=== PATIENT | female | born 1970 | race Two or more races ===

== ENCOUNTER 2020-08-04 15:02 | Inpatient (IN) | payer MEDICAID ==
[~2020-08-04] VITALS: Ht 152.4 cm; Wt 108.9 kg
[2020-08-04] VITALS (9 sets, daily range): BP systolic 100–134; BP diastolic 50–74
[~2020-08-04 15:02] MED LIST: Azithromycin 500 MG in NS 275 ML IVPB ONE; Piperacillin/Tazobactam 3.375 GM in NS 110 ML IVPB ONE; Sodium Bicarbonate 50ml Carp IV ONE; cefTRIAXone 1 GM in NS 55 ML IV ONE; dexAMETHasone 10mg/ml Inj IV ONE
[2020-08-04] MEDS ORDERED: Amiodarone 900 MG in D5W 500ml 482 ML IV ONE (15:15)
--- NOTE | 2020-08-04 15:15 | Emergency Room Report ---
History of Present Illness General Chief Complaint: Syncope Source: EMS Present Illness HPI Patient is a 50-year-old female past medical history of end-stage renal disease on dialysis due for dialysis today who presents to the ER via EMS for syncope. Family called EMS due to patient having a syncope at home. While with EMS patient had a generalized tonic-clonic seizure. Patient was given 5 mg of Versed. While patient was being registered and waiting in the ambulance patient had loss of pulses. CPR was initiated by EMS. Unable to obtain further history at this time. Allergies: Coded Allergies: No Known Allergies (Unverified , 08/04/20) COVID-19 Screening Contact w/high risk pt: No Experienced COVID-19 symptoms?: No COVID-19 Testing performed WAVE SOLDER OFFBEARER: No Patient History Reviewed Nursing Documentation: PMH: Agreed; PSxH: Agreed Review of Systems All Other Systems: limited - Cardiac arrest Physical Exam Vital Signs Date Time Temp Pulse Resp B/P (MAP) Pulse Ox O2 Delivery O2 Flow Rate FiO2 08/04/20 14:42 142 22 86 Ambu-Bag 15.0 Sp02 EP Interpretation: abnormal General Appearance: other - Unresponsive Head: normocephalic, atraumatic Eyes: right eye other - Corneal opacification ENT: moist mucus membranes Neck: full range of motion, no meningismus Respiratory: rales, other - Right anterior chest wall dialysis catheter in place Cardiovascular #1: other - No heartbeat Gastrointestinal: non tender, soft Rectal: deferred Neurologic: other - GCS 3 Psychiatric: other - Nonverbal Skin: no rash Lymphatic: no adenopathy Procedures Critical Care Time Critical Care Time Total critical care time: Approximately 125 minutes. Due to a high probability of clinically significant, life threatening deterioration, the patient required my highest level of preparedness to intervene emergently and I personally spent this critical care time directly and personally managing the patient. This critical care time included obtaining a history; examining the patient; pulse oximetry; ordering and review of studies; arranging urgent treatment with development of a management plan; evaluation of patient's response to treatment; frequent reassessment; and, discussions with other providers.This critical care time was performed to assess and manage the high probability of imminent, life- threatening deterioration that could result in multi-organ failure. It was exclusive of separately billable procedures and treating other patients and teaching time. Please see MDM section and the rest of the note for further information on patie nt assessment and treatment. Central Line Central Line : Consent: Emergent Central Line Lumen: triple Maximal Sterile Barrier Tech: yes cap, yes mask, yes sterile gown, yes sterile gloves, yes large sterile sheet, yes hand hygiene, yes chlorhexidine prep No Max Barrier Tech Because: emergency insertion Central Line Postion: femoral (L) US Guided Line?: No Complications: none Central Line Post Position: sutured, good blood return Attempts: One Patient Tolerated: Well Complications: None Intubation Intubation : Consent: Emergent Tube Size (cm): 7.5 Breath Sounds after Intubation: equal Intubation Complications: no complications Post Intubation Xray: Yes Attempts: One Patient Tolerated: Well Complications: None Medical Decision Making Diagnostic Impression: Primary Impression: Cardiac arrest Additional Impressions: DKA (diabetic ketoacidoses) Metabolic acidosis COVID-19 Pneumonia Septic shock ER Course 1 patient came from ambulance CPR was in progress. Patient was already given 1 round of epi in the ambulance. Please refer to nursing code sheet for subsequent medications and timing. Patient was given a total of 5 epis throughout the code sodium bicarbonate, calcium gluconate and dextrose upon arrival. Patient had return of pulses. Patient was in sinus tachycardia. 150 mg of IV amiodarone and amiodarone drip has been ordered. Patient again had loss of pulses while in the emergency room. CPR was initiated. 2 A of epi were given. Patient was also given sodium bicarb and calcium chloride. Patient had return of pulses. Patient was in sinus tachycardia. EKG had some elevations in the inferior lateral leads. EKG has been sent to [facility] where they are receiving STEMI center. They were called at 3:[address] Tubbs from [facility] called back, no STEMI. ET tube pulled back 2 cm after initial chest x-ray Patient severely acidotic. Patient given multiple amps of sodium bicarbonate and started on a bicarb drip. Initial pH six-point 8 repeat pH 6.9. With PCO2 of 58. I will increase the respiratory rate on the ventilator to 24 from 16. Patient also hyperglycemic with anion gap. Patient started on insulin drip and given insulin bolus. Patient's lactate is 18. Patient already started on broad-spectrum antibiotics. Unable to fluid resuscitate due to COVID-19 infection and risk of ARDS from pulmonary edema in addition to her history of end-stage renal disease. Patient is fluid overloaded. Unclear if patient has any urine output. I have given her 40 mg of IV Lasix. Patient will require dialysis but unable to perform dialysis in the emergency room will wait until patient goes to the ICU. Patient's troponin is elevated. As well as her D- dimer. Patient started on heparin. Patient remains in critical condition. I spoke with the patient's daughter who does not live with her several times regarding her mother's condition. She knows that her mother is critically ill and on life support. Her father and other sister live with her mother and she will inform them of the status of the patient.. Laboratory Tests Test 08/04/20 15:31 White Blood Count 21.4 K/UL (4.8-10.8) H Red Blood Count 3.34 M/UL (4.20-5.40) L Hemoglobin 11.7 G/DL (12.0-16.0) L Hematocrit 35.8 % (37.0-47.0) L Mean Corpuscular Volume 107 FL (80-99) H Mean Corpuscular Hemoglobin 35.0 PG (27.0-31.0) H Mean Corpuscular Hemoglobin Concent 32.6 G/DL (32.0-36.0) Red Cell Distribution Width 13.5 % (11.6-14.8) Platelet Count 127 K/UL (150-450) L Mean Platelet Volume 13.5 FL (6.5-10.1) H Neutrophils (%) (Auto) % (45.0-75.0) Lymphocytes (%) (Auto) % (20.0-45.0) Monocytes (%) (Auto) % (1.0-10.0) Eosinophils (%) (Auto) % (0.0-3.0) Basophils (%) (Auto) % (0.0-2.0) Neutrophils % (Manual) Pending Lymphocytes % (Manual) Pending Platelet Estimate Pending Platelet Morphology Pending Prothrombin Time Pending Prothrombin Time INR Pending Activated Partial Thromboplast Time Pending D-Dimer Pending Sodium Level 134 MMOL/L (136-145) L Potassium Level 4.8 MMOL/L (3.5-5.1) Chloride Level 92 MMOL/L (98-107) L Carbon Dioxide Level 15 MMOL/L (21-32) L Anion Gap 27 mmol/L (5-15) H Blood Urea Nitrogen 92 mg/dL (7-18) H Creatinine 14.4 MG/DL (0.55-1.30) H Estimated Glomerular Filtration Rate 2.7 mL/min (>60) Glucose Level 557 MG/DL (74-106) *H Lactic Acid Level 18.60 mmol/L (0.4-2.0) H Calcium Level 11.4 MG/DL (8.5-10.1) H Phosphorus Level 13.8 MG/DL (2.5-4.9) H Magnesium Level 2.6 MG/DL (1.8-2.4) H Ferritin 380 NG/ML (8-388) Total Bilirubin 0.6 MG/DL (0.2-1.0) Aspartate Amino Transferase (AST) 716 U/L (15-37) H Alanine Aminotransferase (ALT) 355 U/L (12-78) H Alkaline Phosphatase 298 U/L (46-116) H Lactate Dehydrogenase 2101 U/L (81-234) H Total Creatine Kinase 212 U/L (26-308) Troponin I 0.322 ng/mL (0.000-0.056) C-Reactive Protein, Quantitative 25.5 mg/dL (0.00-0.90) H Pro-B-Type Natriuretic Peptide 20194 pg/mL (0-125) H Total Protein 5.7 G/DL (6.4-8.2) L Albumin 1.8 G/DL (3.4-5.0) L Globulin 3.9 g/dL Albumin/Globulin Ratio 0.5 (1.0-2.7) L Lipase 84 U/L (73-393) Microbiology Date/Time Source Procedure Growth Status 08/04/20 15:24 Nasopharynx SARS-CoV-2 RdRp Gene Assay - Final Complete EKG Diagnostic Results Troponin ordered: Yes When was troponin ordered?: Aug 04, 2020 EKG Time: 15:21 EP Interpretation: Beatrice Michael MD Rate: tachycardiac - 161 bpm Rhythm: other - Sinus tachycardia ST Segments: other - Slight depressions in the inferior leads with elevations in the lateral leads ASA given to the pt in ED: No Rhythm Strip Diag. Results Rhythm Strip Time: 16:12 EP Interpretation: yes - Beatrice Michael MD Rate: 82 bpm Rhythm: NSR, no PVC's, no ectopy Chest X-Ray Diagnostic Results Chest X-Ray Diagnostic Results : Chest X-Ray Ordered: Yes # of Views/Limited/Complete: 1 View Indication: Other - Cardiac arrest EP Interpretation: Yes Interpretation: no effusion, no pneumothorax, other - Bilateral pulmonary infiltrates ET tube just above or at the krishna Impression: Other - Pneumonia Electronically Signed by: Beatrice Michael MD Last Vital Signs Date Time Temp Pulse Resp B/P (MAP) Pulse Ox O2 Delivery O2 Flow Rate FiO2 08/04/20 14:42 142 22 86 Ambu-Bag 15.0 Disposition: ADMITTED INPATIENT - ICU Condition: Serious Physician Consult: Dr. Goyal, 1735 PM Additional Instructions: Please note that this report is being documented using [employer] technology. This can lead to erroneous entry secondary to incorrect interpretation by the dictating instrument. Sepsis Event Note Evaluation Current Stage of Sepsis: Septic Shock Possible Source: Pulmonary Focused Exam Allergies: Coded Allergies: No Known Allergies (Unverified , 08/04/20) Date Exam Occurred: Aug 04, 2020 Time Exam Occurred: 17:41 Laboratory Studies Laboratory Tests Test 08/04/20 15:31 White Blood Count 21.4 K/UL (4.8-10.8) H Red Blood Count 3.34 M/UL (4.20-5.40) L Hemoglobin 11.7 G/DL (12.0-16.0) L Hematocrit 35.8 % (37.0-47.0) L Mean Corpuscular Volume 107 FL (80-99) H Mean Corpuscular Hemoglobin 35.0 PG (27.0-31.0) H Mean Corpuscular Hemoglobin Concent 32.6 G/DL (32.0-36.0) Red Cell Distribution Width 13.5 % (11.6-14.8) Platelet Count 127 K/UL (150-450) L Mean Platelet Volume 13.5 FL (6.5-10.1) H Neutrophils (%) (Auto) % (45.0-75.0) Lymphocytes (%) (Auto) % (20.0-45.0) Monocytes (%) (Auto) % (1.0-10.0) Eosinophils (%) (Auto) % (0.0-3.0) Basophils (%) (Auto) % (0.0-2.0) Neutrophils % (Manual) Pending Lymphocytes % (Manual) Pending Platelet Estimate Pending Platelet Morphology Pending Prothrombin Time Pending Prothromb Time International Ratio Pending Activated Partial Thromboplast Time Pending D-Dimer Pending Sodium Level 134 MMOL/L (136-145) L Potassium Level 4.8 MMOL/L (3.5-5.1) Chloride Level 92 MMOL/L (98-107) L Carbon Dioxide Level 15 MMOL/L (21-32) L Anion Gap 27 mmol/L (5-15) H Blood Urea Nitrogen 92 mg/dL (7-18) H Creatinine 14.4 MG/DL (0.55-1.30) H Estimat Glomerular Filtration Rate 2.7 mL/min (>60) Glucose Level 557 MG/DL (74-106) *H Lactic Acid Level 18.60 mmol/L (0.4-2.0) H Calcium Level 11.4 MG/DL (8.5-10.1) H Phosphorus Level 13.8 MG/DL (2.5-4.9) H Magnesium Level 2.6 MG/DL (1.8-2.4) H Ferritin 380 NG/ML (8-388) Total Bilirubin 0.6 MG/DL (0.2-1.0) Aspartate Amino Transf (AST/SGOT) 716 U/L (15-37) H Alanine Aminotransferase (ALT/SGPT) 355 U/L (12-78) H Alkaline Phosphatase 298 U/L (46-116) H Lactate Dehydrogenase 2101 U/L (81-234) H Total Creatine Kinase 212 U/L (26-308) Troponin I 0.322 ng/mL (0.000-0.056) C-Reactive Protein, Quantitative 25.5 mg/dL (0.00-0.90) H Pro-B-Type Natriuretic Peptide 52886 pg/mL (0-125) H Total Protein 5.7 G/DL (6.4-8.2) L Albumin 1.8 G/DL (3.4-5.0) L Globulin 3.9 g/dL Albumin/Globulin Ratio 0.5 (1.0-2.7) L Lipase 84 U/L (73-393) Vital Signs Last 24 Hour Vital Signs Date Time Temp Pulse Resp B/P (MAP) Pulse Ox O2 Delivery O2 Flow Rate FiO2 08/04/20 16:15 65/42 08/04/20 16:03 65/42 08/04/20 15:30 98.5 65 22 119/72 93 Mechanical Ventilator 08/04/20 14:42 142 22 119/72 (88) 86 Ambu-Bag 15.0 Respiratory Exam: Rhonchi Cardiovascular Exam: Tachycardia Capillary Refill: Less Than 2 Seconds Peripheral Pulse: Strong Beatrice Michael M.D. Aug 04, 2020 15:15
[2020-08-04] MEDS ORDERED: Sodium Bicarbonate 50ml Carp ONE (15:20)
[2020-08-04] MEDS ORDERED: dexAMETHasone 10mg/ml Inj IV ONE (15:50)
[2020-08-04] MEDS ORDERED: Levophed 4mg/4mL Inj IV ONE ×2 (15:51→20:23)
[2020-08-04] MEDS ORDERED: Sodium Bicarbonate 50ml Carp IV ONE (16:00)
[2020-08-04 16:08] LABS: HEMATOCRIT 35.8 % (37.0-47.0); HEMOGLOBIN 11.7 G/DL (12.0-16.0); MEAN CORPUSCULAR VOLUME 107 FL (80-99); PLATELET COUNT 127 K/UL (150-450); RED BLOOD COUNT 3.34 M/UL (4.20-5.40); RED CELL DISTRIBUTION WIDTH 13.5 % (11.6-14.8); WHITE BLOOD COUNT 21.4 K/UL (4.8-10.8)
[2020-08-04] MEDS: EPINEPHrine 1mg/1ml Amp 1 MG in D5W 249 ML IV SCH ×4 (16:14→21:53)
[2020-08-04] MEDS: DOPamine 400mg/250ml 250 ML IV SCH ×2 (16:15→20:41)
[2020-08-04] MEDS ORDERED: Azithromycin 500mg Inj ONE (16:32)
[2020-08-04 16:39] LABS: ALANINE AMINOTRANSFERASE 355 U/L (12-78); ALBUMIN 1.8 G/DL (3.4-5.0); ALBUMIN/GLOBULIN RATIO 0.5 (1.0-2.7); ALKALINE PHOSPHATASE 298 U/L (46-116); ANION GAP 27 mmol/L (5-15); ASPARTATE AMINO TRANSFERASE 716 U/L (15-37); BILIRUBIN,TOTAL 0.6 MG/DL (0.2-1.0); BLOOD UREA NITROGEN 92 mg/dL (7-18); CALCIUM 11.4 MG/DL (8.5-10.1); CARBON DIOXIDE 15 MMOL/L (21-32); CHLORIDE 92 MMOL/L (98-107); CREATINE KINASE 212 U/L (26-308); CREATININE 14.4 MG/DL (0.55-1.30); FERRITIN 380 NG/ML (8-388); LACTATE DEHYDROGENASE 2101 U/L (81-234); PHOSPHORUS 13.8 MG/DL (2.5-4.9); POTASSIUM 4.8 MMOL/L (3.5-5.1); SODIUM 134 MMOL/L (136-145)
[2020-08-04] MEDS ORDERED: Insulin Human Regular 100units/ml 3ml IV ONE (16:45)
[2020-08-04] MEDS ORDERED: Heparin 25,000u/D5W 500ml 500 ML IV SCH (16:45)
[2020-08-04] MEDS ORDERED: Heparin 5000 units/ml inj IV ONE (16:45)
[2020-08-04] MEDS ORDERED: COREG6.25 MG ORAL (17:00)
[2020-08-04] MEDS ORDERED: COLACE100 MG ORAL (17:00)
[2020-08-04] MEDS ORDERED: ASPIRIN81 MG ORAL (17:00)
[2020-08-04] MEDS ORDERED: LIPITOR40 MG ORAL (17:00)
[2020-08-04] MEDS ORDERED: SYNTHROID75 MCG ORAL (17:00)
[2020-08-04] MEDS ORDERED: SEVELAMER HCL800 MG PO (17:00)
[2020-08-04] MEDS ORDERED: SENNA8.6 M2 PO (17:00)
--- NOTE | 2020-08-04 17:04 | Diagnostic Imaging Report ---
Indication: Hours of breath, status post endotracheal tube placement Technique: One view of the chest Comparison: none Findings: Endotracheal tube tip projects approximately 1 cm above the krishna. There are bilateral diffuse and extensive alveolar infiltrates. The pleural spaces are clear. The heart size is normal. There are overlying cardiac earlier paddles. There is a right jugular tunneled dialysis catheter. Venous stents are seen in the left axilla Impression: Satisfactory endotracheal intubation Extensive bilateral infiltrates, may reflect pulmonary edema or pneumonia, among other possibilities Other findings as noted
[2020-08-04] MEDS: Insulin Reg 100 units Premix 100 ML IVPB SCH (17:23)
[2020-08-04 17:43] LABS: INR 1.3 (0.9-1.1); PARTIAL THROMBOPLASTIN TIME 94 SEC (23-33)
[2020-08-04] MEDS ORDERED: EPINEPHrine 1mg/1ml Amp 1 MG in D5W 249 ML IV SCH (19:00)
[2020-08-04] MEDS ORDERED: Vasopressin 100 UNITS in NS 95 ML IV SCH (19:00)
[2020-08-04] MEDS ORDERED: EPINEPHRINE IV SCH (22:00)
[2020-08-04] MEDS ORDERED: D5W IV SCH (22:00)
[2020-08-05] VITALS (42 sets, daily range): BP systolic 82–152; BP diastolic 39–113
[2020-08-05] MEDS ORDERED: Levophed 4mg/4mL Inj IV ONE ×2 (00:48→06:07)
[2020-08-05] MEDS: Insulin Reg 100 units Premix 100 ML IVPB SCH ×2 (01:00→05:49)
[2020-08-05 04:59] LABS: CALCIUM 8.2 MG/DL (8.5-10.1); CREATININE 13.4 MG/DL (0.55-1.30); POTASSIUM 3.8 MMOL/L (3.5-5.1)
[2020-08-05 06:34] LABS: HEMATOCRIT 32.9 % (37.0-47.0); HEMOGLOBIN 11.3 G/DL (12.0-16.0); MEAN CORPUSCULAR VOLUME 101 FL (80-99); PLATELET COUNT 177 K/UL (150-450); RED BLOOD COUNT 3.26 M/UL (4.20-5.40); RED CELL DISTRIBUTION WIDTH 13.8 % (11.6-14.8)
[2020-08-05 06:36] LABS: WHITE BLOOD COUNT 24.6 K/UL (4.8-10.8)
[2020-08-05] MEDS ORDERED: Heparin 25,000u/D5W 500ml 500 ML IV SCH ×3 (07:00→16:00)
[2020-08-05] MEDS ORDERED: Insulin Reg 100 units Premix 100 ML IV SCH (10:30)
[2020-08-05] MEDS ORDERED: Acetaminophen 650 MG SUPP RECTAL PRN (10:30)
[2020-08-05] MEDS ORDERED: Norepinephrine Bitartrate 8 MG in D5W 500ml 550 ML IV SCH (11:00)
[2020-08-05] MEDS ORDERED: Insulin Rate Change 1 Each MISC PRN (11:00)
[2020-08-05] MEDS ORDERED: Insulin Human Regular 100units/ml 3ml IV PRN ×2 (11:00)
[2020-08-05] MEDS: Vasopressin 100 UNITS in NS 95 ML IV SCH (12:05)
[2020-08-05] MEDS: Piperacillin/Tazobactam 2.25 GM in NS 55 ML IV SCH ×2 (12:05→18:38)
[2020-08-05] MEDS ORDERED: Piperacillin/Tazobactam 3.375 GM in NS 110 ML IVPB SCH (14:00)
[2020-08-05 14:10] LABS: HEMATOCRIT 32.8 % (37.0-47.0); HEMOGLOBIN 11.9 G/DL (12.0-16.0); MEAN CORPUSCULAR VOLUME 97 FL (80-99); PLATELET COUNT 133 K/UL (150-450); RED BLOOD COUNT 3.38 M/UL (4.20-5.40); RED CELL DISTRIBUTION WIDTH 14.1 % (11.6-14.8)
[2020-08-05 14:12] LABS: WHITE BLOOD COUNT 24.6 K/UL (4.8-10.8)
[2020-08-05 14:15] LABS: CREATININE 12.8 MG/DL (0.55-1.30); POTASSIUM 4.1 MMOL/L (3.5-5.1)
--- NOTE | 2020-08-05 15:34 | Consultation ---
DATE OF CONSULTATION: 08/05/2020 PULMONARY CONSULTATION CONSULTING PHYSICIAN: Kevin Antunez MD HISTORY OF PRESENT ILLNESS: This is a 50-year-old female, on chronic hemodialysis due to ESRD. She was brought in by paramedics to the emergency room yesterday after a syncopal episode. Apparently, family called EMS due to patient having had a syncopal episode. Patient was also found to have seizures while in pharmacy district manager custody as well in the ER. Patient had a cardiopulmonary arrest before being taken off the gurney while waiting for the ER bed. Patient was intubated. Currently, patient is on multiple pressors and no other history obtainable. CURRENT MEDICATIONS: Include insulin drip, heparin drip, norepinephrine infusion, Zosyn, vasopressin. Patient has received Decadron as well as broad-spectrum antibiotics. No other history obtainable at this point in time. PHYSICAL EXAMINATION: VITAL SIGNS: Blood pressure 110/50, heart rate 84, respirations 24. She is on mechanical ventilation AC mode, FiO2 100%. CHEST: Clear breath sounds bilaterally. ABDOMEN: Soft. EXTREMITIES: There is no edema. LABORATORY DATA: Lab testing showed WBC 24,000, hemoglobin 11.9. ABG 7.29, pCO2 37, pO2 65. This is on 100% FiO2. Chemistries obtained yesterday show marked hyperglycemia of 647, creatinine of 13, sodium 131, BUN 95. Coags show PTT more than 200 on heparin drip. Troponin 2.24. IMPRESSION: 1. Non-STEMI. 2. Shock, suspect septic versus cardiogenic. 3. ESRD, on dialysis. 4. Marked hyperglycemia. 5. Hyponatremia. DISCUSSION: Patient is critically ill on multiple pressors. She has bilateral pulmonary infiltrates, suspicious for either fluid or a pneumonic process. She is also tested positive for COVID-19. I suspect she has ARDS secondary to COVID-19 pneumonia in conjunction with pulmonary edema. Patient is critically ill on multiple pressors. She would benefit from multiple antibiotics as well as Decadron. Continue AC mode. Prognosis is grave. We will follow carefully. Kevin Antunez M.D. DR: TYRONE/YOON JOB#: [id number] CC:
--- NOTE | 2020-08-05 16:01 | Consultation ---
DATE OF CONSULTATION: 08/05/2020 INFECTIOUS DISEASE CONSULTATION CONSULTING PHYSICIAN: Harry Eugene MD. PRIMARY ATTENDING PHYSICIAN: Rehan Goyal MD. This consult is for coverage of Dr. Dale. HISTORY OF PRESENT ILLNESS: This 50-year-old female admitted yesterday from home. Apparently, the patient had a syncopal episode. After arrival of EMS, the patient had a tonic-clonic seizure. She was also coded on way to the hospital, was intubated. PAST MEDICAL HISTORY: Diabetes mellitus, end-stage renal disease on hemodialysis, obesity. ALLERGIES: No known drug allergies. MEDICATIONS: Zosyn, vasopressin, norepinephrine, insulin, heparin. SOCIAL HISTORY: Not obtainable. REVIEW OF SYSTEMS: Unobtainable. The patient is single. PHYSICAL EXAMINATION: VITAL SIGNS: Temperature 97.4, pulse 87, blood pressure 113/56. HEAD AND NECK: Orally intubated. HEART: Normal rate. LUNGS: On ventilator. ABDOMEN: Soft. EXTREMITIES: No edema. NEUROLOGIC: Unresponsive. LABORATORY AND DIAGNOSTIC DATA: Sodium 131, potassium 3.8, carbon dioxide 20, chloride 90. Glucose is 647. Calcium is 8.2. Troponin 2.24. WBC 24.6, hemoglobin 11.9, hematocrit 36.5, and platelets 133,000. ABG showed pH of 7.291, pCO2 of 37.2, pO2 of 65.8, O2 saturation of 90.1. COVID test was positive. Influenza A and B are negative. Chest x-ray showed bilateral infiltrates, pulmonary edema . IMPRESSION: Sepsis with septic shock, cardiac arrest, COVID-19 pneumonia, may also have aspiration pneumonia. She has diabetes mellitus with hyperglycemia, hypoxemic respiratory failure, hyponatremia, morbid obesity, elevation of troponin likely non-ST elevated myocardial infarction. RECOMMENDATION: Continue Zosyn. Continue supportive care. Start on dexamethasone. At the end of my exam, I thank Dr. Goyal for involving me in the care of this patient. Harry Eugene M.D. DR: PATRICIA JOB#: [id number] CC: LAURA
[2020-08-05] MEDS: NOREPINEPHRINE BITARTRATE IV SCH (16:18)
[2020-08-05] MEDS: SODIUM CHLORIDE IV SCH (16:18)
[2020-08-05] MEDS ORDERED: NovoLOG Insulin Flexpen SUBQ SCH (16:50)
[2020-08-05 17:43] LABS: CALCIUM 7.9 MG/DL (8.5-10.1); CREATININE 12.9 MG/DL (0.55-1.30); POTASSIUM 4.7 MMOL/L (3.5-5.1)
--- NOTE | 2020-08-05 18:21 | Cardiology Progress Note ---
Assessment/Plan Assessment/Plan The patient is seen and examined, full consult note is dictated. Objective Last 24 Hour Vital Signs Date Time Temp Pulse Resp B/P (MAP) Pulse Ox O2 Delivery O2 Flow Rate FiO2 08/05/20 17:00 152/48 08/05/20 16:18 105/48 08/05/20 16:00 87 08/05/20 16:00 115/49 08/05/20 15:30 114/48 08/05/20 15:28 89 24 100 08/05/20 15:00 82/39 08/05/20 14:45 87/40 08/05/20 14:30 96/41 08/05/20 14:00 117/48 08/05/20 13:00 112/51 08/05/20 12:00 97.4 87 24 113/56 (75) 95 08/05/20 12:00 113/56 08/05/20 12:00 86 08/05/20 11:59 114/56 08/05/20 11:30 86 24 110/56 (74) 96 08/05/20 11:29 88 24 100 08/05/20 11:00 85 24 110/52 (71) 96 08/05/20 10:30 84 24 109/53 (71) 96 08/05/20 10:00 83 24 110/47 (68) 96 08/05/20 09:36 78 24 100 08/05/20 09:33 78 24 88 Mechanical Ventilator 100 08/05/20 09:30 83 24 101/49 (66) 95 08/05/20 09:00 Mechanical Ventilator 08/05/20 09:00 83 24 98/45 (62) 93 08/05/20 08:30 96.5 83 23 95/40 (58) 86 08/05/20 08:30 100 08/05/20 08:15 98.3 82 20 118/54 93 Mechanical Ventilator 15.0 80 08/05/20 07:30 98.3 82 20 118/54 93 Mechanical Ventilator 08/05/20 07:00 98.5 88 24 107/58 94 Mechanical Ventilator 80 08/05/20 07:00 118/57 08/05/20 06:30 98.5 89 24 118/57 94 Mechanical Ventilator 15.0 80 08/05/20 06:10 110/57 08/05/20 06:00 98.5 89 24 110/57 94 Mechanical Ventilator 80 08/05/20 06:00 110/57 08/05/20 05:30 98.5 91 24 112/59 94 Mechanical Ventilator 80 08/05/20 05:00 103/63 08/05/20 05:00 98.5 91 24 103/63 94 Mechanical Ventilator 15.0 80 08/05/20 04:30 98.5 89 24 106/59 94 Mechanical Ventilator 80 08/05/20 04:00 104/57 08/05/20 04:00 98.5 95 24 104/57 94 Mechanical Ventilator 80 08/05/20 03:30 98.5 97 24 98/52 96 Mechanical Ventilator 80 08/05/20 03:00 98.5 98 24 123/67 96 Mechanical Ventilator 80 08/05/20 03:00 123/67 08/05/20 02:45 80 08/05/20 02:44 105 24 80 08/05/20 02:30 98.5 104 24 123/60 96 Mechanical Ventilator 15.0 60 08/05/20 02:00 98.5 108 24 115/65 96 Mechanical Ventilator 60 08/05/20 02:00 115/65 08/05/20 01:30 98.5 105 24 117/66 96 Mechanical Ventilator 60 08/05/20 01:01 111/59 08/05/20 01:00 111/59 08/05/20 01:00 98.5 106 24 121/63 96 Mechanical Ventilator 60 08/05/20 00:30 98.5 108 23 111/59 99 Mechanical Ventilator 60 08/05/20 00:00 98.5 113 23 94/49 99 Mechanical Ventilator 60 08/05/20 00:00 94/49 08/05/20 00:00 94/49 08/04/20 23:30 98.5 111 23 100/52 99 Mechanical Ventilator 60 08/04/20 23:15 113 23 60 08/04/20 23:15 60 08/04/20 23:00 134/61 08/04/20 23:00 134/61 08/04/20 23:00 98.5 110 21 134/61 99 Mechanical Ventilator 100 08/04/20 22:30 98.5 110 22 109/61 99 Mechanical Ventilator 60 08/04/20 22:00 127/63 08/04/20 22:00 127/63 12/23/20 22:00 98.5 110 22 127/63 99 Mechanical Ventilator 100 08/04/20 21:30 98.5 110 22 121/58 100 Mechanical Ventilator 100 08/04/20 21:00 98.5 110 22 102/62 100 Mechanical Ventilator 100 08/04/20 21:00 102/62 08/04/20 21:00 102/62 08/04/20 20:42 82/29 08/04/20 20:41 82/29 08/04/20 20:30 98.5 110 18 116/50 99 Mechanical Ventilator 100 08/04/20 20:00 98.5 110 13 101/74 99 Mechanical Ventilator 100 08/04/20 20:00 101/74 08/04/20 20:00 101/74 08/04/20 19:30 100 08/04/20 19:00 69 18 100 Intake and Output 08/04/20 08/05/20 19:00 07:00 Intake Total 2293.423 ml Balance 2293.423 ml Intake IV Total 2293.423 ml Laboratory Tests Test 08/04/20 18:45 08/04/20 23:02 08/05/20 00:33 08/05/20 01:47 Arterial Blood pH 7.007 (7.350-7.450) Arterial Blood Partial Pressure CO2 36.8 mmHg (35.0-45.0) Arterial Blood Partial Pressure O2 240.0 mmHg (75.0-100.0) H Arterial Blood HCO3 9.0 mmol/L (22.0-26.0) *L Arterial Blood Oxygen Saturation 98.7 % (95-100) Arterial Blood Base Excess -21.3 (-2-2) *L Viraj Test Positive POC Whole Blood Glucose Pending Pending Pending Test 08/05/20 03:43 08/05/20 04:00 08/05/20 06:01 08/05/20 06:53 POC Whole Blood Glucose Pending Pending 512 MG/DL (74-106) *H White Blood Count 24.6 K/UL (4.8-10.8) *H Red Blood Count 3.26 M/UL (4.20-5.40) L Hemoglobin 11.3 G/DL (12.0-16.0) L Hematocrit 32.9 % (37.0-47.0) L Mean Corpuscular Volume 101 FL (80-99) H Mean Corpuscular Hemoglobin 34.6 PG (27.0-31.0) H Mean Corpuscular Hemoglobin Concent 34.3 G/DL (32.0-36.0) Red Cell Distribution Width 13.8 % (11.6-14.8) Platelet Count 177 K/UL (150-450) Mean Platelet Volume 14.1 FL (6.5-10.1) H Neutrophils (%) (Auto) % (45.0-75.0) Lymphocytes (%) (Auto) % (20.0-45.0) Monocytes (%) (Auto) % (1.0-10.0) Eosinophils (%) (Auto) % (0.0-3.0) Basophils (%) (Auto) % (0.0-2.0) Differential Total Cells Counted 100 Neutrophils % (Manual) 85 % (45-75) H Lymphocytes % (Manual) 6 % (20-45) L Monocytes % (Manual) 2 % (1-10) Eosinophils % (Manual) 0 % (0-3) Basophils % (Manual) 0 % (0-2) Metamyelocytes % 1 % (0-0) H Myelocytes % 1 % (0-0) H Band Neutrophils 5 % (0-8) Platelet Estimate Adequate Platelet Morphology Normal Hypochromasia 1+ Anisocytosis 1+ Crenated Cell 1+ Activated Partial Thromboplast Time > 200 SEC (23-33) *H Sodium Level 131 MMOL/L (136-145) L Potassium Level 3.8 MMOL/L (3.5-5.1) Chloride Level 90 MMOL/L (98-107) L Carbon Dioxide Level 20 MMOL/L (21-32) L Anion Gap 21 mmol/L (5-15) H Blood Urea Nitrogen 95 mg/dL (7-18) H Creatinine 13.4 MG/DL (0.55-1.30) H Estimat Glomerular Filtration Rate 2.9 mL/min (>60) Glucose Level 647 MG/DL (74-106) *H Calcium Level 8.2 MG/DL (8.5-10.1) #L Troponin I 2.241 ng/mL (0.000-0.056) Test 08/05/20 08:00 08/05/20 10:11 08/05/20 10:17 08/05/20 12:14 POC Whole Blood Glucose 404 MG/DL (74-106) H 260 MG/DL (74-106) H 229 MG/DL (74-106) H Arterial Blood pH 7.291 (7.350-7.450) Arterial Blood Partial Pressure CO2 37.2 mmHg (35.0-45.0) Arterial Blood Partial Pressure O2 65.8 mmHg (75.0-100.0) L Arterial Blood HCO3 17.5 mmol/L (22.0-26.0) *L Arterial Blood Oxygen Saturation 90.1 % (95-100) L Arterial Blood Base Excess -8.3 (-2-2) L Viraj Test Positive Test 08/05/20 13:30 08/05/20 15:37 08/05/20 16:30 White Blood Count 24.6 K/UL (4.8-10.8) *H Red Blood Count 3.38 M/UL (4.20-5.40) L Hemoglobin 11.9 G/DL (12.0-16.0) L Hematocrit 32.8 % (37.0-47.0) L Mean Corpuscular Volume 97 FL (80-99) Mean Corpuscular Hemoglobin 35.1 PG (27.0-31.0) H Mean Corpuscular Hemoglobin Concent 36.3 G/DL (32.0-36.0) H Red Cell Distribution Width 14.1 % (11.6-14.8) Platelet Count 133 K/UL (150-450) L Mean Platelet Volume 11.8 FL (6.5-10.1) H Neutrophils (%) (Auto) % (45.0-75.0) Lymphocytes (%) (Auto) % (20.0-45.0) Monocytes (%) (Auto) % (1.0-10.0) Eosinophils (%) (Auto) % (0.0-3.0) Basophils (%) (Auto) % (0.0-2.0) Differential Total Cells Counted 100 Neutrophils % (Manual) 77 % (45-75) H Lymphocytes % (Manual) 6 % (20-45) L Monocytes % (Manual) 0 % (1-10) L Eosinophils % (Manual) 0 % (0-3) Basophils % (Manual) 0 % (0-2) Band Neutrophils 17 % (0-8) H Platelet Estimate Decreased L Platelet Morphology Normal Hypochromasia 1+ Anisocytosis 1+ Activated Partial Thromboplast Time > 150 SEC (23-33) *H Sodium Level 136 MMOL/L (136-145) 135 MMOL/L (136-145) L Potassium Level 4.1 MMOL/L (3.5-5.1) 4.7 MMOL/L (3.5-5.1) Chloride Level 94 MMOL/L (98-107) L 95 MMOL/L (98-107) L Carbon Dioxide Level 21 MMOL/L (21-32) 22 MMOL/L (21-32) Anion Gap 21 mmol/L (5-15) H 18 mmol/L (5-15) H Blood Urea Nitrogen 95 mg/dL (7-18) H 98 mg/dL (7-18) H Creatinine 12.8 MG/DL (0.55-1.30) H 12.9 MG/DL (0.55-1.30) H Estimat Glomerular Filtration Rate 3.0 mL/min (>60) 3.0 mL/min (>60) Glucose Level 230 MG/DL (74-106) #H 156 MG/DL (74-106) H Hemoglobin A1c 8.9 % (4.3-6.0) H Calcium Level 8.0 MG/DL (8.5-10.1) L 7.9 MG/DL (8.5-10.1) L POC Whole Blood Glucose 135 MG/DL (74-106) H Microbiology Date/Time Source Procedure Growth Status 08/04/20 18:46 Nasal Nares - Final Complete 08/04/20 18:46 Nasal Nares - Final Complete 08/04/20 15:31 Blood Blood Culture - Preliminary Resulted 08/04/20 15:24 Nasopharynx SARS-CoV-2 RdRp Gene Assay - Final Complete Torres Gates MD Aug 05, 2020 18:21
[2020-08-05] MEDS ORDERED: Dyna-Hex 2% Top Sol 2oz TOPIC SCH (20:30)
[2020-08-05] MEDS: NovoLOG Insulin Flexpen SUBQ SCH (21:04)
--- NOTE | 2020-08-05 21:15 | Consultation ---
DATE OF CONSULTATION: 08/05/2020 CARDIOLOGY CONSULTATION CONSULTING PHYSICIAN: Torres Gates MD REFERRING PHYSICIAN: Eugene Goyal MD REASON FOR CONSULTATION: Management of hemodynamic instability in a patient who had cardiac arrest. HISTORY OF PRESENT ILLNESS: Patient is a very unfortunate 50-year-old female with history of end-stage renal disease on dialysis, who presents to the emergency department for evaluation of syncope. Apparently, the family called EMS as the patient lost consciousness at home. At the time of arrival of EMS, the patient had generalized tonic-clonic seizure, was given 5 mg of Versed, and was brought to this facility. While the patient was being registered and waiting in the ambulance, the patient had gone to full cardiac arrest with loss of pulses. CPR was initiated by EMS. Apparently, the patient in the ambulance loses pulses. CPR initiated by EMS. The patient was brought to emergency department for further evaluation and management of cardiac arrest and tonic-clonic seizures. Unfortunately, full history could not be obtained from the patient, by the paramedics, and neither by the emergency medicine physicians. PAST MEDICAL HISTORY: 1. End-stage renal disease. 2. Dyslipidemia. 3. Hypertension. 4. Hypothyroidism. ALLERGIES: No known drug allergies. SURGERIES: Dialysis AV shunt. REVIEW OF SYSTEMS: Unable to obtain. MEDICATIONS: List of medications, aspirin 81 mg p.o. daily, atorvastatin 40 mg at bedtime, carvedilol 6.25 mg twice daily, Colace 100 mg p.o. daily, levothyroxine 75 mcg p.o. daily, senna 8.6 mg daily, and sevelamer 800 mg 3 times a day. PHYSICAL EXAMINATION: VITAL SIGNS: At the time of arrival to the hospital, the patient was on Ambu bag. Blood pressure was 119/72 mmHg, heart rate was 142, respirations of 22, pulse of 86. The patient got intubated and repeat of blood pressure was 65/42 mmHg, pulse was 69, respirations of 18, and O2 saturation yony to 93% on FiO2 of 100%. In the emergency department, the patient had a chest x-ray. HEENT: Atraumatic and normocephalic. Anicteric. Comatose. NECK: JVP cannot be assessed due to increased positive inspiratory pressure. CARDIOVASCULAR: Normal S1, S2. Regular rate and rhythm. Tachycardic. No murmurs, gallops, or rubs. LUNGS: Bibasilar bilateral crackles in both lungs. ABDOMEN: Soft, nontender, nondistended. No hepatosplenomegaly. Positive bowel sounds extremities. EXTREMITIES: No evidence of edema, clubbing, or cyanosis. Chest x-ray shows bilateral bronchopneumonia affecting most of the lung parenchyma, presence of ET tube and presence of a PermCath. The tip in the cavojugular junction. LABORATORY FINDINGS: WBC was 21.4, hemoglobin 11.7, hematocrit of 35.8, and platelet count was 127. Sodium 134, potassium 4.8, chloride 92, bicarbonate 15, BUN of 92, creatinine 14.4, glucose 557. Lactic acid is 18.6. Calcium is 11.4. Phosphorus 13.8. Magnesium is 2.6. AST was 16 and ALT of 355. Troponin I level 0.322. ProBNP was [address]. INR was 1.3. D-dimer was over 35.2. PTT was 94. Arterial blood gas, pH was 6.98, pCO2 53.9, pO2 88, bicarbonate 12.4, O2 saturation 86.7%. ASSESSMENT AND PLAN: Patient is a very unfortunate 50-year-old female, status post cardiac arrest. 1. Elevated troponin I level in this patient, most likely due to cardiac arrest and hypoperfusion of coronary vasculature, the patient would be a candidate for anticoagulation therapy as the cause of this syncope could be due to saddle pulmonary embolism in association with positive COVID-19 infection. The patient requires serial troponin I level. A 2D echocardiography for assessment of LV systolic and diastolic function and to rule out RV strain. 2. Syncope, could be secondary to pulmonary embolism or hypotension following hemodialysis or septic shock and hemodynamic compromise associated with sepsis and COVID-19 infection. 3. Hypoxic hypercarbic respiratory failure, currently intubated. 4. Multiorgan failure including renal failure, shock liver, and encephalopathy. 5. Generalized tonic-colonic due to diminished cerebral flow. 6. Bilateral bronchopneumonia of COVID-19 infection, mostly an ARDS picture, intubated. The patient's condition is considered to be grave and in view of multiorgan failure, the mortality is over 85%. At this time, a 12-lead electrocardiogram shows sinus rhythm with wide QRS complexes, right bundle-branch block pattern, and severely prolonged QT interval, magnesium level is within normal limits. We will continue with hemodynamic management. The patient is currently on 3 pressors. We will try to keep the mean arterial pressure above 65 mmHg. Total amount of time spent in evaluation of this patient in the intensive care unit of [facility], discussing the plan of care with the primary care physician and nursing staff, reviewing the records was 50 minutes. I would like to thank Dr. Goyal for the courtesy of this consultation. Torres Gates M.D. DR: RASHEED JOB#: [id number] CC:
--- NOTE | 2020-08-05 23:30 | Consultation ---
DATE OF CONSULTATION: 08/05/2020 NEPHROLOGY CONSULTATION CONSULTING PHYSICIAN: Tammy Hou MD REFERRING PHYSICIAN: Eugene Goyal MD REASON FOR CONSULTATION: End-stage renal disease, need for dialysis. HISTORY OF PRESENT ILLNESS: Patient is a 50-year-old unfortunate female with past medical history significant for history of end-stage renal disease, anemia of chronic kidney disease, renal osteodystrophy, hypertension who had a syncopal episode at home, which was witnessed by the family paramedics, patient had 1 episode of seizure and patient had cardiopulmonary arrest. Patient was intubated in ER, coded again in ER, was admitted in ICU currently. Patient is on 2 pressors, intubated, unresponsive, and the nurse who is taking care of the patient is on the bedside with me. PAST MEDICAL HISTORY: 1. End-stage renal disease. 2. Chronic kidney disease. 3. Renal osteodystrophy. 4. Hypertension. FAMILY HISTORY: Noncontributory. SOCIAL HISTORY: There is no known history of tobacco, alcohol, or drug use. MEDICATIONS: List was reviewed. ALLERGIES: No known drug allergies. REVIEW OF SYSTEMS: Unable to obtain due to patient's condition and mental status. PHYSICAL EXAMINATION: VITAL SIGNS: Patient had temperature of 98 degrees, blood pressure of 145/55, pulse rate of 87. HEAD AND NECK: No JVP. No LAD. ET tube is intact. Extraocular movements are intact. LUNGS: Decreased breathing sound on the both sides. CARDIAC: Regular rate and rhythm. S1-S2. No murmur. No rubs. ABDOMEN: Soft, nontender, nondistended. No organomegaly. EXTREMITIES: No edema. No clubbing. No cyanosis. LABORATORY VALUES: WBC count of 24,000, hemoglobin 11.9, hematocrit of 32.8, platelet count of 133. Chemistry reveals sodium 137, potassium 4.7, chloride 95, bicarb 22, BUN of 98, creatinine of 12.9, glucose of 156, calcium of 8.9. ASSESSMENT: 1. End-stage renal disease. 2. Anemia of chronic kidney disease. 3. Renal osteodystrophy. 4. Status post Code Blue and respiratory failure. 5. Seizure. 6. COVID infection. PLAN: To continue current pressor. I would plan for patient dialysis when patient is more stable tomorrow. I would double concentrate all IV fluids. I would check the calcium, phosphorous, PTH for evaluation of renal osteodystrophy and dialysis as needed. Again, I would like to thank, Dr. Goyal for allowing me to participate in the care of this patient. Tammy Hou M.D. DR: SHERI JOB#: [id number] CC:
[2020-08-06] VITALS (41 sets, daily range): BP systolic 87–145; BP diastolic 40–64
[2020-08-06] MEDS ORDERED: Heparin 25,000u/D5W 500ml 500 ML IV SCH (00:15)
[2020-08-06] MEDS: NovoLOG Insulin Flexpen SUBQ SCH ×6 (01:00→20:30)
[2020-08-06] MEDS: NOREPINEPHRINE BITARTRATE IV SCH ×3 (02:00→20:00)
[2020-08-06] MEDS: SODIUM CHLORIDE IV SCH ×3 (02:00→20:00)
[2020-08-06] MEDS: Piperacillin/Tazobactam 2.25 GM in NS 55 ML IV SCH ×3 (03:00→20:00)
[2020-08-06] MEDS: Vasopressin 100 UNITS in NS 95 ML IV SCH (03:00)
[2020-08-06 09:15] LABS: SODIUM 132 MMOL/L (136-145)
[2020-08-06 09:16] LABS: BLOOD UREA NITROGEN 103 mg/dL (7-18); CALCIUM 6.6 MG/DL (8.5-10.1); CARBON DIOXIDE 17 MMOL/L (21-32); CHLORIDE 94 MMOL/L (98-107); CREATININE 13.1 MG/DL (0.55-1.30)
[2020-08-06] MEDS ORDERED: NOVOLOG100 UNITS1 SUBQ (11:31)
[2020-08-06] MEDS ORDERED: VITAMIN D3125 MCG PO (11:31)
[2020-08-06] MEDS ORDERED: RENA-VITE TABL0.8 M1 PO (11:31)
[2020-08-06] MEDS ORDERED: BISACODYL5 MG ORAL (11:31)
[2020-08-06] MEDS ORDERED: DOCUSATE SODIU250 MG ORAL (11:31)
[2020-08-06] MEDS ORDERED: LISINOPRIL2.5 MG ORAL (11:31)
--- NOTE | 2020-08-06 12:52 | Pulmonology Progress Note ---
Subjective Interval Events: Remains intubated; unresponsive; on pressors Constitutional: Reports: no symptoms HEENT: Repors: no symptoms Respiratory: Reports: no symptoms Cardiovascular: Reports: no symptoms Gastrointestinal/Abdominal: Reports: no symptoms Neurologic: Reports: no symptoms Allergies: Coded Allergies: No Known Allergies (Unverified , 08/04/20) Objective Last 24 Hour Vital Signs Date Time Temp Pulse Resp B/P (MAP) Pulse Ox O2 Delivery O2 Flow Rate FiO2 08/06/20 11:30 110 13 122/51 (74) 96 08/06/20 11:00 110 24 115/40 (65) 86 08/06/20 11:00 110 24 100 08/06/20 10:30 111 24 134/51 (78) 93 08/06/20 10:14 133/58 08/06/20 10:00 113 24 133/58 (83) 94 08/06/20 09:30 113 24 136/59 (84) 94 08/06/20 09:00 113 23 139/64 (89) 94 08/06/20 08:30 114 21 138/57 (84) 94 08/06/20 08:00 113 08/06/20 08:00 103.0 113 23 138/62 (87) 94 08/06/20 08:00 100 08/06/20 08:00 Mechanical Ventilator 08/06/20 07:30 112 20 141/57 (85) 94 08/06/20 07:10 113 24 100 08/06/20 07:00 139/63 08/06/20 07:00 112 21 139/63 (88) 94 08/06/20 06:30 112 23 08/06/20 06:00 145/57 08/06/20 06:00 112 23 145/57 (86) 94 08/06/20 05:00 111 15 140/57 (84) 94 08/06/20 05:00 140/57 08/06/20 04:00 110 08/06/20 04:00 110 10 136/57 (83) 94 08/06/20 04:00 Mechanical Ventilator 08/06/20 04:00 136/57 08/06/20 03:25 108 24 100 08/06/20 03:00 108 20 127/52 (77) 93 08/06/20 03:00 127/52 12/25/20 02:00 129/45 12/25/20 02:00 104 24 120/44 (69) 91 08/06/20 01:00 120/41 08/06/20 01:00 104 24 120/41 (67) 91 08/06/20 00:00 103 24 117/47 (70) 91 08/06/20 00:00 117/47 08/06/20 00:00 Mechanical Ventilator 08/06/20 00:00 103 08/05/20 23:03 99 24 100 08/05/20 23:00 102 24 116/44 (68) 90 08/05/20 23:00 116/44 08/05/20 22:00 121/44 08/05/20 22:00 97 24 121/44 (69) 90 08/05/20 21:00 98 24 121/43 (69) 90 08/05/20 21:00 121/43 08/05/20 20:00 97 08/05/20 20:00 97 24 127/45 (72) 90 08/05/20 20:00 Mechanical Ventilator 08/05/20 20:00 127/45 08/05/20 19:05 93 24 100 08/05/20 19:00 93 24 128/45 (72) 90 08/05/20 18:30 92 24 134/46 (75) 91 08/05/20 18:00 142/54 08/05/20 18:00 97 24 142/54 (83) 92 08/05/20 17:30 89 24 145/55 (85) 94 08/05/20 17:00 87 24 152/48 (82) 96 08/05/20 17:00 152/48 08/05/20 16:30 87 24 87/42 (57) 93 08/05/20 16:18 105/48 08/05/20 16:00 87 08/05/20 16:00 115/49 08/05/20 16:00 98.2 85 24 115/49 (71) 95 08/05/20 16:00 100 08/05/20 16:00 Mechanical Ventilator 08/05/20 15:30 114/48 08/05/20 15:30 87 24 114/48 (70) 96 08/05/20 15:28 89 24 100 08/05/20 15:00 82/39 08/05/20 15:00 87 24 82/39 (53) 95 08/05/20 14:45 87/40 08/05/20 14:30 86 24 96/41 (59) 94 08/05/20 14:30 96/41 08/05/20 14:00 117/48 08/05/20 14:00 88 24 117/48 (71) 97 08/05/20 13:30 89 24 130/113 (119) 96 08/05/20 13:00 88 24 112/51 (71) 95 08/05/20 13:00 112/51 Intake and Output 08/05/20 08/06/20 19:00 07:00 Intake Total 1486.4975 ml 1859.363 ml Output Total 0 ml 0 ml Balance 1486.4975 ml 1859.363 ml Intake IV Total 1426.4975 ml 1859.363 ml Other 60 ml Output Urine Total 0 ml 0 ml General Appearance: no acute distress HEENT: normocephalic Respiratory: chest wall non-tender Cardiovascular: normal peripheral pulses Abdomen: normal bowel sounds Microbiology Date/Time Source Procedure Growth Status 08/04/20 18:46 Nasal Nares - Final Complete 08/04/20 18:46 Nasal Nares - Final Complete 08/04/20 15:31 Blood Blood Culture - Preliminary Resulted 08/04/20 15:24 Nasopharynx SARS-CoV-2 RdRp Gene Assay - Final Complete Laboratory Tests 08/05/20 13:26: POC Whole Blood Glucose 188H 08/05/20 13:30: White Blood Count 24.6*H, Red Blood Count 3.38L, Hemoglobin 11.9L, Hematocrit 32.8L, Mean Corpuscular Volume 97, Mean Corpuscular Hemoglobin 35.1H, Mean Corpuscular Hemoglobin Concent 36.3H, Red Cell Distribution Width 14.1, Platelet Count 133L, Mean Platelet Volume 11.8H, Neutrophils (%) (Auto) , Lymphocytes (%) (Auto) , Monocytes (%) (Auto) , Eosinophils (%) (Auto) , Basophils (%) (Auto) , Differential Total Cells Counted 100, Neutrophils % (Manual) 77H, Lymphocytes % (Manual) 6L, Monocytes % (Manual) 0L, Eosinophils % (Manual) 0, Basophils % (Manual) 0, Band Neutrophils 17H, Platelet Estimate DecreasedL, Platelet Mo rphology Normal, Hypochromasia 1+, Anisocytosis 1+, Activated Partial Thromboplast Time > 150*H, Sodium Level 136, Potassium Level 4.1, Chloride Level 94L, Carbon Dioxide Level 21, Anion Gap 21H, Blood Urea Nitrogen 95H, Creatinine 12.8H, Estimat Glomerular Filtration Rate 3.0, Glucose Level 230#H, Hemoglobin A1c 8.9H, Calcium Level 8.0L 08/05/20 15:37: POC Whole Blood Glucose 135H 08/05/20 16:30: Sodium Level 135L, Potassium Level 4.7, Chloride Level 95L, Carbon Dioxide Level 22, Anion Gap 18H, Blood Urea Nitrogen 98H, Creatinine 12.9H, Estimat Glomerular Filtration Rate 3.0, Glucose Level 156H, Calcium Level 7.9L 08/05/20 22:50: Activated Partial Thromboplast Time 130H 08/06/20 05:00: Activated Partial Thromboplast Time 68H, Sodium Level 132L, Potassium Level 7.0*H, Chloride Level 94L, Carbon Dioxide Level 17L, Blood Urea Nitrogen 103H, Creatinine 13.1H, Estimat Glomerular Filtration Rate 3.0, Glucose Level 348#H, Calcium Level 6.6L, Phosphorus Level 6.8H Current Medications Medications (Trade) Dose Ordered Sig/Rekha Route PRN Reason Start Time Stop Time Status Last Admin Dose Admin Acetaminophen (Tylenol) 650 mg Q4H PRN RECTAL Temp >100.5 08/05/20 10:30 09/04/20 10:29 08/06/20 10:42 Chlorhexidine Gluconate (Prachi-Hex 2%) 1 applic DAILY@1999 TOPIC 08/06/20 20:00 11/04/20 19:59 Dextrose (Dextrose 50%) 25 ml Q30M PRN IV Hypoglycemia 08/05/20 16:30 11/03/20 16:29 Dextrose (Dextrose 50%) 50 ml Q30M PRN IV Hypoglycemia 08/05/20 16:30 11/03/20 16:29 Heparin Sodium/ Dextrose 500 ml @ 1.608 mls/ hr ADJUST PER PROTOCOL IV 08/06/20 00:15 09/05/20 00:14 08/06/20 00:45 Insulin Aspart (NovoLOG) Q4HR SUBQ 08/05/20 22:00 11/03/20 21:59 08/06/20 10:29 Norepinephrine Bitartrate 16 mg/ Sodium Chloride 566 ml @ 0 mls/hr Q24H IV 08/05/20 16:00 08/08/20 15:59 08/06/20 10:14 Piperacillin Sod/ Tazobactam Sod 2.25 gm/Sodium Chloride 55 ml @ 110 mls/hr Q8H IV 08/05/20 11:00 08/12/20 10:59 08/06/20 10:13 Sodium Chloride 1,000 ml @ 100 mls/hr Q10H IV 08/05/20 10:30 09/04/20 10:29 08/06/20 10:13 Vasopressin 100 units/Sodium Chloride 100 ml @ 0 mls/hr Q24H IV 08/05/20 11:00 08/08/20 10:59 08/05/20 12:05 Assessment/Plan Assessment/Plan IMPRESSION: 1. Non-STEMI. 2. Shock, suspect septic versus cardiogenic. On Zosyn 3. ESRD, on dialysis. 4. Marked hyperglycemia. 5. Hyponatremia. 6. Hyperkalemia; nephrology following DISCUSSION: Patient is critically ill on multiple pressors. She has bilateral pulmonary infiltrates, suspicious for either fluid or a pneumonic process. She is also tested positive for COVID-19. I suspect she has ARDS secondary to COVID-19 pneumonia in conjunction with pulmonary edema. Patient is critically ill on multiple pressors. She would benefit from multiple antibiotics as well as Decadron. Continue AC mode. Prognosis is grave. I will follow carefully. Kevin Antunez M.D. Kevin Antunez MD Aug 06, 2020 12:52
--- NOTE | 2020-08-06 13:34 | Infectious Diseases Prog Note ---
Assessment/Plan Assessment/Plan IMPRESSION: Sepsis with septic shock, Bacteremia Cardiac arrest, COVID-19 pneumonia, ?aspiration pneumonia. Diabetes mellitus with hyperglycemia, Hypoxemic respiratory failure, Hyponatremia, Morbid obesity, elevation of troponin . RECOMMENDATION: Continue Zosyn & Dexamethasone Continue supportive care. Start on IV Vancomycin . Subjective ROS Limited/Unobtainable: Yes Constitutional: Reports: fever, other - [id number] Cardiovascular: Reports: other - on Levophed Allergies: Coded Allergies: No Known Allergies (Unverified , 08/04/20) Objective Last 24 Hour Vital Signs Date Time Temp Pulse Resp B/P (MAP) Pulse Ox O2 Delivery O2 Flow Rate FiO2 08/06/20 13:00 105 0 124/54 (77) 96 08/06/20 12:30 107 0 123/53 (76) 97 08/06/20 12:00 100.4 109 0 124/53 (76) 97 08/06/20 12:00 Mechanical Ventilator 08/06/20 11:30 110 13 122/51 (74) 96 08/06/20 11:00 110 24 115/40 (65) 86 08/06/20 11:00 110 24 100 08/06/20 10:30 111 24 134/51 (78) 93 08/06/20 10:14 133/58 08/06/20 10:00 113 24 133/58 (83) 94 08/06/20 09:30 113 24 136/59 (84) 94 08/06/20 09:00 113 23 139/64 (89) 94 08/06/20 08:30 114 21 138/57 (84) 94 08/06/20 08:00 113 08/06/20 08:00 103.0 113 23 138/62 (87) 94 08/06/20 08:00 100 08/06/20 08:00 Mechanical Ventilator 08/06/20 07:30 112 20 141/57 (85) 94 08/06/20 07:10 113 24 100 08/06/20 07:00 139/63 08/06/20 07:00 112 21 139/63 (88) 94 08/06/20 06:30 112 23 08/06/20 06:00 145/57 08/06/20 06:00 112 23 145/57 (86) 94 08/06/20 05:00 111 15 140/57 (84) 94 08/06/20 05:00 140/57 08/06/20 04:00 110 08/06/20 04:00 110 10 136/57 (83) 94 08/06/20 04:00 Mechanical Ventilator 08/06/20 04:00 136/57 08/06/20 03:25 108 24 100 08/06/20 03:00 108 20 127/52 (77) 93 08/06/20 03:00 127/52 08/06/20 02:00 129/45 08/06/20 02:00 104 24 120/44 (69) 91 08/06/20 01:00 120/41 08/06/20 01:00 104 24 120/41 (67) 91 08/06/20 00:00 103 24 117/47 (70) 91 08/06/20 00:00 117/47 08/06/20 00:00 Mechanical Ventilator 08/06/20 00:00 103 08/05/20 23:03 99 24 100 08/05/20 23:00 102 24 116/44 (68) 90 08/05/20 23:00 116/44 08/05/20 22:00 121/44 08/05/20 22:00 97 24 121/44 (69) 90 08/05/20 21:00 98 24 121/43 (69) 90 08/05/20 21:00 121/43 08/05/20 20:00 97 08/05/20 20:00 97 24 127/45 (72) 90 08/05/20 20:00 Mechanical Ventilator 08/05/20 20:00 127/45 08/05/20 19:05 93 24 100 08/05/20 19:00 93 24 128/45 (72) 90 08/05/20 18:30 92 24 134/46 (75) 91 08/05/20 18:00 142/54 08/05/20 18:00 97 24 142/54 (83) 92 08/05/20 17:30 89 24 145/55 (85) 94 08/05/20 17:00 87 24 152/48 (82) 96 08/05/20 17:00 152/48 08/05/20 16:30 87 24 87/42 (57) 93 08/05/20 16:18 105/48 08/05/20 16:00 87 08/05/20 16:00 115/49 08/05/20 16:00 98.2 85 24 115/49 (71) 95 08/05/20 16:00 100 08/05/20 16:00 Mechanical Ventilator 08/05/20 15:30 114/48 08/05/20 15:30 87 24 114/48 (70) 96 08/05/20 15:28 89 24 100 08/05/20 15:00 82/39 08/05/20 15:00 87 24 82/39 (53) 95 08/05/20 14:45 87/40 08/05/20 14:30 86 24 96/41 (59) 94 08/05/20 14:30 96/41 08/05/20 14:00 117/48 08/05/20 14:00 88 24 117/48 (71) 97 08/05/20 13:30 89 24 130/113 (119) 96 Height (Feet): 5 Height (Inches): 0.00 Weight (Pounds): 240 HEENT: other - orally intubated Respiratory/Chest: other - on ventilator, QBG5=837% Cardiovascular: tachycardia, other - Non tunneled HD catheter Abdomen: soft, non tender Extremities: no edema Neurologic/Psychiatric: unresponsiveness Microbiology Date/Time Source Procedure Growth Status 08/04/20 18:46 Nasal Nares - Final Complete 08/04/20 18:46 Nasal Nares - Final Complete 08/04/20 15:31 Blood Blood Culture - Preliminary Resulted 08/04/20 15:24 Nasopharynx SARS-CoV-2 RdRp Gene Assay - Final Complete Laboratory Tests Test 08/05/20 13:30 08/05/20 15:37 08/05/20 16:30 08/05/20 22:50 White Blood Count 24.6 K/UL (4.8-10.8) *H Red Blood Count 3.38 M/UL (4.20-5.40) L Hemoglobin 11.9 G/DL (12.0-16.0) L Hematocrit 32.8 % (37.0-47.0) L Mean Corpuscular Volume 97 FL (80-99) Mean Corpuscular Hemoglobin 35.1 PG (27.0-31.0) H Mean Corpuscular Hemoglobin Concent 36.3 G/DL (32.0-36.0) H Red Cell Distribution Width 14.1 % (11.6-14.8) Platelet Count 133 K/UL (150-450) L Mean Platelet Volume 11.8 FL (6.5-10.1) H Neutrophils (%) (Auto) % (45.0-75.0) Lymphocytes (%) (Auto) % (20.0-45.0) Monocytes (%) (Auto) % (1.0-10.0) Eosinophils (%) (Auto) % (0.0-3.0) Basophils (%) (Auto) % (0.0-2.0) Differential Total Cells Counted 100 Neutrophils % (Manual) 77 % (45-75) H Lymphocytes % (Manual) 6 % (20-45) L Monocytes % (Manual) 0 % (1-10) L Eosinophils % (Manual) 0 % (0-3) Basophils % (Manual) 0 % (0-2) Band Neutrophils 17 % (0-8) H Platelet Estimate Decreased L Platelet Morphology Normal Hypochromasia 1+ Anisocytosis 1+ Activated Partial Thromboplast Time > 150 SEC (23-33) *H 130 SEC (23-33) H Sodium Level 136 MMOL/L (136-145) 135 MMOL/L (136-145) L Potassium Level 4.1 MMOL/L (3.5-5.1) 4.7 MMOL/L (3.5-5.1) Chloride Level 94 MMOL/L (98-107) L 95 MMOL/L (98-107) L Carbon Dioxide Level 21 MMOL/L (21-32) 22 MMOL/L (21-32) Anion Gap 21 mmol/L (5-15) H 18 mmol/L (5-15) H Blood Urea Nitrogen 95 mg/dL (7-18) H 98 mg/dL (7-18) H Creatinine 12.8 MG/DL (0.55-1.30) H 12.9 MG/DL (0.55-1.30) H Estimat Glomerular Filtration Rate 3.0 mL/min (>60) 3.0 mL/min (>60) Glucose Level 230 MG/DL (74-106) #H 156 MG/DL (74-106) H Hemoglobin A1c 8.9 % (4.3-6.0) H Calcium Level 8.0 MG/DL (8.5-10.1) L 7.9 MG/DL (8.5-10.1) L POC Whole Blood Glucose 135 MG/DL (74-106) H Test 08/06/20 05:00 Activated Partial Thromboplast Time 68 SEC (23-33) H Sodium Level 132 MMOL/L (136-145) L Potassium Level 7.0 MMOL/L (3.5-5.1) *H Chloride Level 94 MMOL/L (98-107) L Carbon Dioxide Level 17 MMOL/L (21-32) L Blood Urea Nitrogen 103 mg/dL (7-18) H Creatinine 13.1 MG/DL (0.55-1.30) H Estimat Glomerular Filtration Rate 3.0 mL/min (>60) Glucose Level 348 MG/DL (74-106) #H Calcium Level 6.6 MG/DL (8.5-10.1) L Phosphorus Level 6.8 MG/DL (2.5-4.9) H Current Medications Medications (Trade) Dose Ordered Sig/Rekha Route PRN Reason Start Time Stop Time Status Last Admin Dose Admin Acetaminophen (Tylenol) 650 mg Q4H PRN RECTAL Temp >100.5 08/05/20 10:30 09/04/20 10:29 08/06/20 10:42 Chlorhexidine Gluconate (Prachi-Hex 2%) 1 applic DAILY@2000 TOPIC 08/06/20 20:00 11/04/20 19:59 Dextrose (Dextrose 50%) 25 ml Q30M PRN IV Hypoglycemia 08/05/20 16:30 11/03/20 16:29 Dextrose (Dextrose 50%) 50 ml Q30M PRN IV Hypoglycemia 08/05/20 16:30 11/03/20 16:29 Heparin Sodium/ Dextrose 500 ml @ 1.608 mls/ hr ADJUST PER PROTOCOL IV 08/06/20 00:15 09/05/20 00:14 08/06/20 00:45 Insulin Aspart (NovoLOG) Q4HR SUBQ 08/05/20 22:00 11/03/20 21:59 08/06/20 10:29 Norepinephrine Bitartrate 16 mg/ Sodium Chloride 566 ml @ 0 mls/hr Q24H IV 08/05/20 16:00 08/08/20 15:59 08/06/20 10:14 Piperacillin Sod/ Tazobactam Sod 2.25 gm/Sodium Chloride 55 ml @ 110 mls/hr Q8H IV 08/05/20 11:00 08/12/20 10:59 08/06/20 10:13 Sodium Chloride 1,000 ml @ 100 mls/hr Q10H IV 08/05/20 10:30 09/04/20 10:29 08/06/20 10:13 Vasopressin 100 units/Sodium Chloride 100 ml @ 0 mls/hr Q24H IV 08/05/20 11:00 08/08/20 10:59 08/05/20 12:05 Harry Eugene MD Aug 06, 2020 13:33
--- NOTE | 2020-08-06 13:52 | General Progress Note ---
Subjective Allergies: Coded Allergies: No Known Allergies (Unverified , 08/04/20) Objective Last 24 Hour Vital Signs Date Time Temp Pulse Resp B/P (MAP) Pulse Ox O2 Delivery O2 Flow Rate FiO2 08/06/20 13:00 105 0 124/54 (77) 96 08/06/20 12:59 100.4 08/06/20 12:30 107 0 123/53 (76) 97 08/06/20 12:00 100.4 109 0 124/53 (76) 97 08/06/20 12:00 Mechanical Ventilator 08/06/20 11:30 110 13 122/51 (74) 96 08/06/20 11:00 110 24 115/40 (65) 86 08/06/20 11:00 110 24 100 08/06/20 10:30 111 24 134/51 (78) 93 08/06/20 10:14 133/58 08/06/20 10:00 113 24 133/58 (83) 94 08/06/20 09:30 113 24 136/59 (84) 94 08/06/20 09:00 113 23 139/64 (89) 94 08/06/20 08:30 114 21 138/57 (84) 94 08/06/20 08:00 113 08/06/20 08:00 103.0 113 23 138/62 (87) 94 08/06/20 08:00 100 08/06/20 08:00 Mechanical Ventilator 08/06/20 07:30 112 20 141/57 (85) 94 08/06/20 07:10 113 24 100 08/06/20 07:00 139/63 08/06/20 07:00 112 21 139/63 (88) 94 08/06/20 06:30 112 23 08/06/20 06:00 145/57 08/06/20 06:00 112 23 145/57 (86) 94 08/06/20 05:00 111 15 140/57 (84) 94 08/06/20 05:00 140/57 08/06/20 04:00 110 08/06/20 04:00 110 10 136/57 (83) 94 08/06/20 04:00 Mechanical Ventilator 08/06/20 04:00 136/57 08/06/20 03:25 108 24 100 08/06/20 03:00 108 20 127/52 (77) 93 08/06/20 03:00 127/52 08/06/20 02:00 129/45 08/06/20 02:00 104 24 120/44 (69) 91 08/06/20 01:00 120/41 08/06/20 01:00 104 24 120/41 (67) 91 08/06/20 00:00 103 24 117/47 (70) 91 08/06/20 00:00 117/47 08/06/20 00:00 Mechanical Ventilator 08/06/20 00:00 103 08/05/20 23:03 99 24 100 08/05/20 23:00 102 24 116/44 (68) 90 08/05/20 23:00 116/44 08/05/20 22:00 121/44 08/05/20 22:00 97 24 121/44 (69) 90 08/05/20 21:00 98 24 121/43 (69) 90 08/05/20 21:00 121/43 08/05/20 20:00 97 08/05/20 20:00 97 24 127/45 (72) 90 08/05/20 20:00 Mechanical Ventilator 08/05/20 20:00 127/45 08/05/20 19:05 93 24 100 08/05/20 19:00 93 24 128/45 (72) 90 08/05/20 18:30 92 24 134/46 (75) 91 08/05/20 18:00 142/54 08/05/20 18:00 97 24 142/54 (83) 92 08/05/20 17:30 89 24 145/55 (85) 94 08/05/20 17:00 87 24 152/48 (82) 96 08/05/20 17:00 152/48 08/05/20 16:30 87 24 87/42 (57) 93 08/05/20 16:18 105/48 08/05/20 16:00 87 08/05/20 16:00 115/49 08/05/20 16:00 98.2 85 24 115/49 (71) 95 08/05/20 16:00 100 08/05/20 16:00 Mechanical Ventilator 08/05/20 15:30 114/48 08/05/20 15:30 87 24 114/48 (70) 96 12/24/20 15:28 89 24 100 08/05/20 15:00 82/39 08/05/20 15:00 87 24 82/39 (53) 95 08/05/20 14:45 87/40 08/05/20 14:30 86 24 96/41 (59) 94 08/05/20 14:30 96/41 08/05/20 14:00 117/48 08/05/20 14:00 88 24 117/48 (71) 97 Intake and Output 08/05/20 08/06/20 19:00 07:00 Intake Total 1486.4975 ml 1859.363 ml Output Total 0 ml 0 ml Balance 1486.4975 ml 1859.363 ml Intake IV Total 1426.4975 ml 1859.363 ml Other 60 ml Output Urine Total 0 ml 0 ml Laboratory Tests 08/05/20 15:37: POC Whole Blood Glucose 135H 08/05/20 16:30: Sodium Level 135L, Potassium Level 4.7, Chloride Level 95L, Carbon Dioxide Level 22, Anion Gap 18H, Blood Urea Nitrogen 98H, Creatinine 12.9H, Estimat Glomerular Filtration Rate 3.0, Glucose Level 156H, Calcium Level 7.9L 08/05/20 22:50: Activated Partial Thromboplast Time 130H 08/06/20 05:00: Sodium Level 132L, Potassium Level 7.0*H, Chloride Level 94L, Carbon Dioxide Level 17L, Blood Urea Nitrogen 103H, Creatinine 13.1H, Estimat Glomerular Filtration Rate 3.0, Glucose Level 348#H, Calcium Level 6.6L, Activated Partial Thromboplast Time 68H, Phosphorus Level 6.8H, Hepatitis B Surface Antigen [Pending] Height (Feet): 5 Height (Inches): 0.00 Weight (Pounds): 240 Neck: supple Cardiovascular: regular rhythm Respiratory/Chest: crackles/rales Abdomen: soft, no organomegaly Assessment/Plan Assessment/Plan: ac cardiopulmonary arrest meta encephalopathy covid 19 pna ac renal failure dm co morbid obesity poor prognosis con ventilator pressure suuports iv abx cardio, pulmo and nephro on consult consder neuro consult dw charge nurse Rehan Goyal MD Aug 06, 2020 13:52
--- NOTE | 2020-08-06 15:52 | Nephrology Progress Note ---
Assessment/Plan Assessment 1. End-stage renal disease. 2. Anemia of chronic kidney disease. 3. Renal osteodystrophy. 4. Status post Code Blue and respiratory failure. 5. Seizure. 6. COVID infection. Plan dialysis as schedule continue epogen monitoring phos nutritional support Subjective ROS Limited/Unobtainable: Yes Objective Objective Last 24 Hour Vital Signs Date Time Temp Pulse Resp B/P (MAP) Pulse Ox O2 Delivery O2 Flow Rate FiO2 08/06/20 15:00 102 24 100 08/06/20 14:30 102 24 123/50 (74) 97 08/06/20 14:00 102 24 120/48 (72) 97 08/06/20 13:30 103 24 123/53 (76) 96 08/06/20 13:00 105 0 124/54 (77) 96 08/06/20 12:59 100.4 08/06/20 12:30 107 0 123/53 (76) 97 08/06/20 12:00 108 08/06/20 12:00 100.4 109 0 124/53 (76) 97 08/06/20 12:00 Mechanical Ventilator 08/06/20 11:30 110 13 122/51 (74) 96 08/06/20 11:00 110 24 115/40 (65) 86 08/06/20 11:00 110 24 100 08/06/20 10:30 111 24 134/51 (78) 93 08/06/20 10:14 133/58 08/06/20 10:00 113 24 133/58 (83) 94 08/06/20 09:30 113 24 136/59 (84) 94 08/06/20 09:00 113 23 139/64 (89) 94 08/06/20 08:30 114 21 138/57 (84) 94 08/06/20 08:00 113 08/06/20 08:00 103.0 113 23 138/62 (87) 94 08/06/20 08:00 100 08/06/20 08:00 Mechanical Ventilator 08/06/20 07:30 112 20 141/57 (85) 94 08/06/20 07:10 113 24 100 08/06/20 07:00 139/63 08/06/20 07:00 112 21 139/63 (88) 94 08/06/20 06:30 112 23 08/06/20 06:00 145/57 08/06/20 06:00 112 23 145/57 (86) 94 08/06/20 05:00 111 15 140/57 (84) 94 08/06/20 05:00 140/57 08/06/20 04:00 110 08/06/20 04:00 110 10 136/57 (83) 94 08/06/20 04:00 Mechanical Ventilator 08/06/20 04:00 136/57 08/06/20 03:25 108 24 100 08/06/20 03:00 108 20 127/52 (77) 93 08/06/20 03:00 127/52 08/06/20 02:00 129/45 08/06/20 02:00 104 24 120/44 (69) 91 08/06/20 01:00 120/41 08/06/20 01:00 104 24 120/41 (67) 91 08/06/20 00:00 103 24 117/47 (70) 91 08/06/20 00:00 117/47 08/06/20 00:00 Mechanical Ventilator 08/06/20 00:00 103 08/05/20 23:03 99 24 100 08/05/20 23:00 102 24 116/44 (68) 90 08/05/20 23:00 116/44 08/05/20 22:00 121/44 08/05/20 22:00 97 24 121/44 (69) 90 08/05/20 21:00 98 24 121/43 (69) 90 08/05/20 21:00 121/43 08/05/20 20:00 97 08/05/20 20:00 97 24 127/45 (72) 90 08/05/20 20:00 Mechanical Ventilator 08/05/20 20:00 127/45 08/05/20 19:05 93 24 100 08/05/20 19:00 93 24 128/45 (72) 90 08/05/20 18:30 92 24 134/46 (75) 91 08/05/20 18:00 142/54 08/05/20 18:00 97 24 142/54 (83) 92 08/05/20 17:30 89 24 145/55 (85) 94 08/05/20 17:00 87 24 152/48 (82) 96 08/05/20 17:00 152/48 08/05/20 16:30 87 24 87/42 (57) 93 08/05/20 16:18 105/48 08/05/20 16:00 87 08/05/20 16:00 115/49 08/05/20 16:00 98.2 85 24 115/49 (71) 95 08/05/20 16:00 100 08/05/20 16:00 Mechanical Ventilator Intake and Output 08/05/20 08/06/20 19:00 07:00 Intake Total 1486.4975 ml 1859.363 ml Output Total 0 ml 0 ml Balance 1486.4975 ml 1859.363 ml Intake IV Total 1426.4975 ml 1859.363 ml Other 60 ml Output Urine Total 0 ml 0 ml Laboratory Tests 08/05/20 16:30: Sodium Level 135L, Potassium Level 4.7, Chloride Level 95L, Carbon Dioxide Level 22, Anion Gap 18H, Blood Urea Nitrogen 98H, Creatinine 12.9H, Estimat Glomerular Filtration Rate 3.0, Glucose Level 156H, Calcium Level 7.9L 08/05/20 22:50: Activated Partial Thromboplast Time 130H 08/06/20 05:00: Sodium Level 132L, Potassium Level 7.0*H, Chloride Level 94L, Carbon Dioxide Level 17L, Blood Urea Nitrogen 103H, Creatinine 13.1H, Estimat Glomerular Filtration Rate 3.0, Glucose Level 348#H, Calcium Level 6.6L, Activated Partial Thromboplast Time 68H, Phosphorus Level 6.8H, Hepatitis B Surface Antigen [Pending] 08/06/20 13:51: POC Whole Blood Glucose 362H 08/06/20 14:30: Activated Partial Thromboplast Time 43H Height (Feet): 5 Height (Inches): 0.00 Weight (Pounds): 240 Objective HEAD AND NECK: No JVP. No LAD. ET tube is intact. Extraocular movements are intact. LUNGS: Decreased breathing sound on the both sides. CARDIAC: Regular rate and rhythm. S1-S2. No murmur. No rubs. ABDOMEN: Soft, nontender, nondistended. No organomegaly. EXTREMITIES: No edema. No clubbing. No cyanosis. Tammy Hou MD Aug 06, 2020 15:52
[2020-08-06] MEDS ORDERED: Vancomycin 1.5gm/300ml Premix IVPB SCH (17:00)
[2020-08-06] MEDS: Dyna-Hex 2% Top Sol 2oz TOPIC SCH (20:17)
[2020-08-07] VITALS (40 sets, daily range): BP systolic 59–144; BP diastolic 10–61
[2020-08-07] MEDS: NovoLOG Insulin Flexpen SUBQ SCH ×6 (01:00→21:14)
[2020-08-07] MEDS: Vasopressin 100 UNITS in NS 95 ML IV SCH (03:00)
[2020-08-07] MEDS: Piperacillin/Tazobactam 2.25 GM in NS 55 ML IV SCH ×3 (03:30→18:59)
[2020-08-07] MEDS: SODIUM CHLORIDE IV SCH ×2 (05:00→15:11)
[2020-08-07] MEDS: NOREPINEPHRINE BITARTRATE IV SCH ×2 (05:00→15:11)
--- NOTE | 2020-08-07 08:57 | Infectious Diseases Prog Note ---
Assessment/Plan Assessment/Plan IMPRESSION: Sepsis with septic shock, Bacteremia Cardiac arrest, COVID-19 pneumonia, ?aspiration pneumonia. Diabetes mellitus with hyperglycemia, Hypoxemic respiratory failure, Hyponatremia, Morbid obesity, Elevation of troponin . ARDS RECOMMENDATION: Continue Zosyn & Dexamethasone Continue IV Vancomycin Will f/u cultures . Subjective ROS Limited/Unobtainable: Yes Constitutional: Reports: fever, other - last night Cardiovascular: Reports: other - on vasopressors, bleeding from left femoral line Allergies: Coded Allergies: No Known Allergies (Unverified , 08/04/20) Objective Last 24 Hour Vital Signs Date Time Temp Pulse Resp B/P (MAP) Pulse Ox O2 Delivery O2 Flow Rate FiO2 08/07/20 08:00 103/43 08/07/20 08:00 101 24 103/43 (63) 08/07/20 07:00 101 24 106/46 (66) 08/07/20 07:00 106/46 08/07/20 06:55 101 24 100 08/07/20 06:30 100 24 08/07/20 06:00 100 24 117/48 (71) 08/07/20 06:00 117/48 08/07/20 05:00 100 24 118/49 (72) 08/07/20 05:00 118/49 08/07/20 04:00 98 08/07/20 04:00 114/47 08/07/20 04:00 Mechanical Ventilator 08/07/20 04:00 98 24 114/47 (69) 08/07/20 03:00 128/50 08/07/20 03:00 97 24 128/50 (76) 08/07/20 02:00 136/54 08/07/20 02:00 95 24 136/54 (81) 08/07/20 01:36 94 24 100 08/07/20 01:00 144/61 08/07/20 01:00 94 24 144/61 (88) 08/07/20 00:00 94 24 141/57 (85) 08/07/20 00:00 141/57 08/07/20 00:00 94 08/07/20 00:00 Mechanical Ventilator 08/06/20 23:30 94 24 136/54 (81) 08/06/20 23:00 98.9 93 22 104/50 (68) 08/06/20 23:00 104/50 08/06/20 22:30 97 24 101/47 (65) 08/06/20 22:26 104 24 100 08/06/20 22:00 100 14 87/46 (60) 08/06/20 22:00 87/46 08/06/20 21:30 101 11 94/44 (61) 08/06/20 21:00 102 10 99/46 (63) 08/06/20 21:00 99/46 08/06/20 20:30 105 24 120/49 (72) 08/06/20 20:00 102.8 105 24 120/49 (72) 08/06/20 20:00 122/52 08/06/20 20:00 105 08/06/20 20:00 Mechanical Ventilator 08/06/20 19:30 101 24 100 08/06/20 19:00 117/47 08/06/20 19:00 106 23 115/48 (70) 08/06/20 18:30 105 23 114/46 (68) 94 08/06/20 18:00 104 21 113/49 (70) 95 08/06/20 18:00 113/49 08/06/20 17:30 103 24 124/46 (72) 96 08/06/20 17:00 119/50 08/06/20 17:00 103 24 124/49 (74) 97 08/06/20 16:30 103 24 125/50 (75) 96 08/06/20 16:01 99.9 102 24 112/53 (72) 97 08/06/20 16:00 100 08/06/20 16:00 102 24 112/53 (72) 97 08/06/20 16:00 Mechanical Ventilator 08/06/20 16:00 102 08/06/20 16:00 117/50 08/06/20 15:30 101 24 117/48 (71) 96 08/06/20 15:00 101 24 123/50 (74) 95 08/06/20 15:00 102 24 100 08/06/20 15:00 123/50 08/06/20 14:30 102 24 123/50 (74) 97 08/06/20 14:00 102 24 120/48 (72) 97 08/06/20 14:00 124/50 08/06/20 13:30 103 24 123/53 (76) 96 08/06/20 13:00 105 0 124/54 (77) 96 08/06/20 13:00 124/54 08/06/20 12:59 100.4 08/06/20 12:30 107 0 123/53 (76) 97 08/06/20 12:00 108 08/06/20 12:00 124/53 08/06/20 12:00 100 08/06/20 12:00 100.4 109 0 124/53 (76) 97 08/06/20 12:00 Mechanical Ventilator 08/06/20 11:30 110 13 122/51 (74) 96 08/06/20 11:00 110 24 115/40 (65) 86 08/06/20 11:00 115/40 08/06/20 11:00 110 24 100 08/06/20 10:30 111 24 134/51 (78) 93 08/06/20 10:14 133/58 08/06/20 10:00 133/58 08/06/20 10:00 113 24 133/58 (83) 94 08/06/20 09:30 113 24 136/59 (84) 94 08/06/20 09:00 139/64 08/06/20 09:00 113 23 139/64 (89) 94 Height (Feet): 5 Height (Inches): 0.00 Weight (Pounds): 240 HEENT: other - orally intubated Respiratory/Chest: other - on Ventilator, [id number]=779% Cardiovascular: tachycardia, other - left femoral line Abdomen: soft, non tender Extremities: no edema Neurologic/Psychiatric: other - comatose Microbiology Date/Time Source Procedure Growth Status 08/04/20 19:03 Rectum - Final NO CARBAPENEM-RESISTANT ENTEROBACTERI... Complete 08/04/20 19:03 Rectum VRE Culture - Final NO VANCOMYCIN RESISTANT ENTEROCOCCUS ... Complete 08/04/20 19:03 Nasal Nares MRSA Culture - Final NO METHICILLIN RESISTANT STAPH AUREUS... Complete 08/04/20 18:46 Nasal Nares - Final Complete 08/04/20 18:46 Nasal Nares - Final Complete 08/04/20 15:31 Blood Blood Culture - Preliminary Gram Positive Cocci Resulted 08/04/20 15:24 Nasopharynx SARS-CoV-2 RdRp Gene Assay - Final Complete Laboratory Tests Test 08/06/20 13:51 08/06/20 14:30 08/06/20 16:54 08/06/20 21:25 POC Whole Blood Glucose 362 MG/DL (74-106) H 359 MG/DL (74-106) H Activated Partial Thromboplast Time 43 SEC (23-33) H 40 SEC (23-33) H Test 08/07/20 04:15 Activated Partial Thromboplast Time 37 SEC (23-33) H Current Medications Medications (Trade) Dose Ordered Sig/Rekha Route PRN Reason Start Time Stop Time Status Last Admin Dose Admin Acetaminophen (Tylenol) 650 mg Q4H PRN RECTAL Temp >100.5 08/05/20 10:30 09/04/20 10:29 08/06/20 10:42 Albumin Human 50 ml @ 50 mls/hr PRN PRN IV For hypotension SBP <90 08/06/20 22:45 11/04/20 22:44 08/07/20 00:47 Chlorhexidine Gluconate (Prachi-Hex 2%) 1 applic DAILY@2000 TOPIC 08/06/20 20:00 11/04/20 19:59 08/06/20 20:17 Dextrose (Dextrose 50%) 25 ml Q30M PRN IV Hypoglycemia 08/05/20 16:30 11/03/20 16:29 Dextrose (Dextrose 50%) 50 ml Q30M PRN IV Hypoglycemia 08/05/20 16:30 11/03/20 16:29 Insulin Aspart (NovoLOG) Q4HR SUBQ 08/05/20 22:00 11/03/20 21:59 08/07/20 05:30 Norepinephrine Bitartrate 16 mg/ Sodium Chloride 566 ml @ 0 mls/hr Q24H IV 08/05/20 16:00 08/08/20 15:59 08/07/20 05:00 Piperacillin Sod/ Tazobactam Sod 2.25 gm/Sodium Chloride 55 ml @ 110 mls/hr Q8H IV 08/05/20 11:00 08/12/20 10:59 08/07/20 03:30 Sodium Chloride 1,000 ml @ 100 mls/hr Q10H IV 08/05/20 10:30 09/04/20 10:29 08/07/20 02:30 Vancomycin HCl ([facility] pharmacy to dose) 1 ea DAILY PRN MISC Per rx protocol 08/06/20 13:45 09/05/20 13:44 Vasopressin 100 units/Sodium Chloride 100 ml @ 0 mls/hr Q24H IV 08/05/20 11:00 08/08/20 10:59 08/07/20 03:00 Harry Eugene MD Aug 07, 2020 08:57
--- NOTE | 2020-08-07 11:09 | Nephrology Progress Note ---
Assessment/Plan Assessment 1. End-stage renal disease. 2. Anemia of chronic kidney disease. 3. Renal osteodystrophy. 4. Status post Code Blue and respiratory failure. 5. Seizure. 6. COVID infection. Plan dialysis as schedule continue epogen monitoring phos nutritional support stat bmp Subjective ROS Limited/Unobtainable: Yes Subjective had dialysis last night post dialysis go hypotensive treated with albumin Objective Objective Last 24 Hour Vital Signs Date Time Temp Pulse Resp B/P (MAP) Pulse Ox O2 Delivery O2 Flow Rate FiO2 08/07/20 11:00 105 24 93/42 (59) 08/07/20 10:00 103 24 94/43 (60) 08/07/20 09:00 102 24 100/43 (62) 08/07/20 08:00 Mechanical Ventilator 08/07/20 08:00 100 08/07/20 08:00 76 08/07/20 08:00 103/43 08/07/20 08:00 101 24 103/43 (63) 08/07/20 07:00 101 24 106/46 (66) 08/07/20 07:00 106/46 08/07/20 06:55 101 24 100 08/07/20 06:30 100 24 08/07/20 06:00 100 24 117/48 (71) 08/07/20 06:00 117/48 08/07/20 05:00 100 24 118/49 (72) 08/07/20 05:00 118/49 08/07/20 04:00 98 08/07/20 04:00 114/47 08/07/20 04:00 Mechanical Ventilator 08/07/20 04:00 98 24 114/47 (69) 08/07/20 03:00 128/50 08/07/20 03:00 97 24 128/50 (76) 08/07/20 02:00 136/54 08/07/20 02:00 95 24 136/54 (81) 08/07/20 01:36 94 24 100 08/07/20 01:00 144/61 08/07/20 01:00 94 24 144/61 (88) 08/07/20 00:00 94 24 141/57 (85) 08/07/20 00:00 141/57 08/07/20 00:00 94 08/07/20 00:00 Mechanical Ventilator 08/06/20 23:30 94 24 136/54 (81) 08/06/20 23:00 98.9 93 22 104/50 (68) 08/06/20 23:00 104/50 08/06/20 22:30 97 24 101/47 (65) 08/06/20 22:26 104 24 100 08/06/20 22:00 100 14 87/46 (60) 08/06/20 22:00 87/46 08/06/20 21:30 101 11 94/44 (61) 08/06/20 21:00 102 10 99/46 (63) 08/06/20 21:00 99/46 08/06/20 20:30 105 24 120/49 (72) 08/06/20 20:00 102.8 105 24 120/49 (72) 08/06/20 20:00 122/52 08/06/20 20:00 105 08/06/20 20:00 Mechanical Ventilator 08/06/20 19:30 101 24 100 08/06/20 19:00 117/47 08/06/20 19:00 106 23 115/48 (70) 08/06/20 18:30 105 23 114/46 (68) 94 08/06/20 18:00 104 21 113/49 (70) 95 08/06/20 18:00 113/49 08/06/20 17:30 103 24 124/46 (72) 96 08/06/20 17:00 119/50 08/06/20 17:00 103 24 124/49 (74) 97 08/06/20 16:30 103 24 125/50 (75) 96 08/06/20 16:01 99.9 102 24 112/53 (72) 97 08/06/20 16:00 100 08/06/20 16:00 102 24 112/53 (72) 97 08/06/20 16:00 Mechanical Ventilator 08/06/20 16:00 102 08/06/20 16:00 117/50 08/06/20 15:30 101 24 117/48 (71) 96 08/06/20 15:00 101 24 123/50 (74) 95 08/06/20 15:00 102 24 100 08/06/20 15:00 123/50 08/06/20 14:30 102 24 123/50 (74) 97 08/06/20 14:00 102 24 120/48 (72) 97 08/06/20 14:00 124/50 08/06/20 13:30 103 24 123/53 (76) 96 08/06/20 13:00 105 0 124/54 (77) 96 08/06/20 13:00 124/54 08/06/20 12:59 100.4 08/06/20 12:30 107 0 123/53 (76) 97 08/06/20 12:00 108 08/06/20 12:00 124/53 08/06/20 12:00 100 08/06/20 12:00 100.4 109 0 124/53 (76) 97 08/06/20 12:00 Mechanical Ventilator 08/06/20 11:30 110 13 122/51 (74) 96 Intake and Output 08/06/20 08/07/20 19:00 07:00 Intake Total 2333.82481 ml 1817.974 ml Output Total 0 ml 0 ml Balance 2333.06137 ml 1817.974 ml Intake IV Total 2293.01470 ml 1817.974 ml Other 40 ml Output Urine Total 0 ml 0 ml Laboratory Tests 08/06/20 13:51: POC Whole Blood Glucose 362H 08/06/20 14:30: Activated Partial Thromboplast Time 43H 08/06/20 16:54: POC Whole Blood Glucose 359H 08/06/20 21:25: Activated Partial Thromboplast Time 40H 08/07/20 04:15: Activated Partial Thromboplast Time 37H Height (Feet): 5 Height (Inches): 0.00 Weight (Pounds): 240 Objective HEAD AND NECK: No JVP. No LAD. ET tube is intact. Extraocular movements are intact. LUNGS: Decreased breathing sound on the both sides. CARDIAC: Regular rate and rhythm. S1-S2. No murmur. No rubs. ABDOMEN: Soft, nontender, nondistended. No organomegaly. EXTREMITIES: No edema. No clubbing. No cyanosis. Tammy Hou MD Aug 07, 2020 11:09
--- NOTE | 2020-08-07 13:39 | Pulmonology Progress Note ---
Subjective ROS Limited/Unobtainable: Yes Interval Events: Remains intubated; unresponsive; on pressors Constitutional: Reports: fever, other - last night HEENT: Repors: no symptoms Respiratory: Reports: no symptoms Cardiovascular: Reports: no symptoms Gastrointestinal/Abdominal: Reports: no symptoms Neurologic: Reports: no symptoms Allergies: Coded Allergies: No Known Allergies (Unverified , 08/04/20) Objective Last 24 Hour Vital Signs Date Time Temp Pulse Resp B/P (MAP) Pulse Ox O2 Delivery O2 Flow Rate FiO2 08/07/20 12:00 105 24 93/36 (55) 08/07/20 12:00 93/36 08/07/20 12:00 105 08/07/20 12:00 Mechanical Ventilator 08/07/20 11:00 93/42 08/07/20 11:00 105 24 93/42 (59) 08/07/20 10:00 94/43 08/07/20 10:00 103 24 94/43 (60) 08/07/20 09:00 100/43 08/07/20 09:00 102 24 100/43 (62) 08/07/20 08:00 Mechanical Ventilator 08/07/20 08:00 100 08/07/20 08:00 76 08/07/20 08:00 103/43 08/07/20 08:00 101 24 103/43 (63) 08/07/20 07:00 101 24 106/46 (66) 08/07/20 07:00 106/46 08/07/20 06:55 101 24 100 08/07/20 06:30 100 24 08/07/20 06:00 100 24 117/48 (71) 08/07/20 06:00 117/48 08/07/20 05:00 100 24 118/49 (72) 08/07/20 05:00 118/49 08/07/20 04:00 98 08/07/20 04:00 114/47 08/07/20 04:00 Mechanical Ventilator 08/07/20 04:00 98 24 114/47 (69) 08/07/20 03:00 128/50 08/07/20 03:00 97 24 128/50 (76) 08/07/20 02:00 136/54 08/07/20 02:00 95 24 136/54 (81) 08/07/20 01:36 94 24 100 08/07/20 01:00 144/61 08/07/20 01:00 94 24 144/61 (88) 08/07/20 00:00 94 24 141/57 (85) 08/07/20 00:00 141/57 08/07/20 00:00 94 08/07/20 00:00 Mechanical Ventilator 08/06/20 23:30 94 24 136/54 (81) 08/06/20 23:00 98.9 93 22 104/50 (68) 08/06/20 23:00 104/50 08/06/20 22:30 97 24 101/47 (65) 08/06/20 22:26 104 24 100 08/06/20 22:00 100 14 87/46 (60) 08/06/20 22:00 87/46 08/06/20 21:30 101 11 94/44 (61) 08/06/20 21:00 102 10 99/46 (63) 08/06/20 21:00 99/46 08/06/20 20:30 105 24 120/49 (72) 08/06/20 20:00 102.8 105 24 120/49 (72) 08/06/20 20:00 122/52 08/06/20 20:00 105 08/06/20 20:00 Mechanical Ventilator 08/06/20 19:30 101 24 100 08/06/20 19:00 117/47 08/06/20 19:00 106 23 115/48 (70) 08/06/20 18:30 105 23 114/46 (68) 94 08/06/20 18:00 104 21 113/49 (70) 95 08/06/20 18:00 113/49 08/06/20 17:30 103 24 124/46 (72) 96 08/06/20 17:00 119/50 08/06/20 17:00 103 24 124/49 (74) 97 08/06/20 16:30 103 24 125/50 (75) 96 08/06/20 16:01 99.9 102 24 112/53 (72) 97 08/06/20 16:00 100 08/06/20 16:00 102 24 112/53 (72) 97 08/06/20 16:00 Mechanical Ventilator 08/06/20 16:00 102 08/06/20 16:00 117/50 08/06/20 15:30 101 24 117/48 (71) 96 08/06/20 15:00 101 24 123/50 (74) 95 08/06/20 15:00 102 24 100 08/06/20 15:00 123/50 08/06/20 14:30 102 24 123/50 (74) 97 08/06/20 14:00 102 24 120/48 (72) 97 08/06/20 14:00 124/50 Intake and Output 08/06/20 08/07/20 19:00 07:00 Intake Total 2333.09259 ml 1817.974 ml Output Total 0 ml 0 ml Balance 2333.48433 ml 1817.974 ml Intake IV Total 2293.22199 ml 1817.974 ml Other 40 ml Output Urine Total 0 ml 0 ml General Appearance: no acute distress HEENT: normocephalic Respiratory: chest wall non-tender Cardiovascular: normal peripheral pulses Abdomen: normal bowel sounds Microbiology Date/Time Source Procedure Growth Status 08/04/20 19:03 Rectum - Final NO CARBAPENEM-RESISTANT ENTEROBACTERI... Complete 08/04/20 19:03 Rectum VRE Culture - Final NO VANCOMYCIN RESISTANT ENTEROCOCCUS ... Complete 08/04/20 19:03 Nasal Nares MRSA Culture - Final NO METHICILLIN RESISTANT STAPH AUREUS... Complete 08/04/20 18:46 Nasal Nares - Final Complete 08/04/20 18:46 Nasal Nares - Final Complete 08/04/20 15:31 Blood Blood Culture - Final Staph Hominis Ssp Hominis Complete 08/04/20 15:24 Nasopharynx SARS-CoV-2 RdRp Gene Assay - Final Complete Laboratory Tests 08/06/20 13:51: POC Whole Blood Glucose 362H 08/06/20 14:30: Activated Partial Thromboplast Time 43H 08/06/20 16:54: POC Whole Blood Glucose 359H 08/06/20 21:25: Activated Partial Thromboplast Time 40H 08/07/20 04:15: Activated Partial Thromboplast Time 37H 08/07/20 11:58: Sodium Level [Pending], Potassium Level [Pending], Chloride Level [Pending], Carbon Dioxide Level [Pending], Blood Urea Nitrogen [Pending], Creatinine [Pending], Estimat Glomerular Filtration Rate [Pending], Glucose Level [Pending], Calcium Level [Pending], Random Vancomycin Level [Pending] Current Medications Medications (Trade) Dose Ordered Sig/Rekha Route PRN Reason Start Time Stop Time Status Last Admin Dose Admin Acetaminophen (Tylenol) 650 mg Q4H PRN RECTAL Temp >100.5 08/05/20 10:30 09/04/20 10:29 08/06/20 10:42 Albumin Human 50 ml @ 50 mls/hr PRN PRN IV For hypotension SBP <90 08/06/20 22:45 11/04/20 22:44 08/07/20 00:47 Chlorhexidine Gluconate (Prachi-Hex 2%) 1 applic DAILY@2000 TOPIC 08/06/20 20:00 11/04/20 19:59 08/06/20 20:17 Dextrose (Dextrose 50%) 25 ml Q30M PRN IV Hypoglycemia 08/05/20 16:30 11/03/20 16:29 Dextrose (Dextrose 50%) 50 ml Q30M PRN IV Hypoglycemia 08/05/20 16:30 11/03/20 16:29 Insulin Aspart (NovoLOG) Q4HR SUBQ 08/05/20 22:00 11/03/20 21:59 08/07/20 09:00 Norepinephrine Bitartrate 16 mg/ Sodium Chloride 566 ml @ 0 mls/hr Q24H IV 08/05/20 16:00 08/08/20 15:59 08/07/20 05:00 Piperacillin Sod/ Tazobactam Sod 2.25 gm/Sodium Chloride 55 ml @ 110 mls/hr Q8H IV 08/05/20 11:00 08/12/20 10:59 08/07/20 11:16 Sodium Chloride 1,000 ml @ 50 mls/hr Q20H IV 08/05/20 10:30 09/04/20 10:29 08/07/20 02:30 Vancomycin HCl ([facility] pharmacy to dose) 1 ea DAILY PRN MISC Per rx protocol 08/06/20 13:45 09/05/20 13:44 Vasopressin 100 units/Sodium Chloride 100 ml @ 0 mls/hr Q24H IV 08/05/20 11:00 08/08/20 10:59 08/07/20 03:00 Assessment/Plan Assessment/Plan IMPRESSION: 1. Non-STEMI. 2. Shock, suspect septic versus cardiogenic. On Zosyn 3. ESRD, on dialysis. 4. Marked hyperglycemia. 5. Hyponatremia. 6. Hyperkalemia; nephrology following DISCUSSION: Patient is critically ill on multiple pressors. She has bilateral pulmonary infiltrates, suspicious for either fluid or a pneumonic process. She is also tested positive for COVID-19. I suspect she has ARDS secondary to COVID-19 pneumonia in conjunction with pulmonary edema. Patient is critically ill on multiple pressors. She would benefit from multiple antibiotics as well as Decadron. Continue AC mode. Prognosis is grave. I will follow carefully. Requested neuro consultation. Kevin Antunez M.D. Kevin Antunez MD Aug 07, 2020 13:39
[2020-08-07 14:55] LABS: CALCIUM 6.9 MG/DL (8.5-10.1); CREATININE 9.4 MG/DL (0.55-1.30); POTASSIUM 5.4 MMOL/L (3.5-5.1)
--- NOTE | 2020-08-07 15:14 | General Progress Note ---
Subjective Allergies: Coded Allergies: No Known Allergies (Unverified , 08/04/20) Subjective non verabal on vent unresponsive Objective Last 24 Hour Vital Signs Date Time Temp Pulse Resp B/P (MAP) Pulse Ox O2 Delivery O2 Flow Rate FiO2 08/07/20 15:11 80/34 08/07/20 14:00 106 24 95/46 (62) 96 08/07/20 14:00 105 24 89/34 (52) 08/07/20 13:58 105 24 100 08/07/20 13:30 106 24 95/46 (62) 96 08/07/20 13:00 105 24 88/34 (52) 94 08/07/20 12:30 98.5 106 24 93/38 (56) 96 08/07/20 12:00 105 24 93/36 (55) 08/07/20 12:00 93/36 08/07/20 12:00 105 08/07/20 12:00 Mechanical Ventilator 08/07/20 11:00 93/42 08/07/20 11:00 105 24 93/42 (59) 08/07/20 10:00 94/43 08/07/20 10:00 103 24 94/43 (60) 08/07/20 09:00 100/43 08/07/20 09:00 102 24 100/43 (62) 08/07/20 08:00 Mechanical Ventilator 08/07/20 08:00 100 08/07/20 08:00 76 08/07/20 08:00 103/43 08/07/20 08:00 101 24 103/43 (63) 08/07/20 07:00 101 24 106/46 (66) 08/07/20 07:00 106/46 08/07/20 06:55 101 24 100 08/07/20 06:30 100 24 08/07/20 06:00 100 24 117/48 (71) 08/07/20 06:00 117/48 08/07/20 05:00 100 24 118/49 (72) 08/07/20 05:00 118/49 08/07/20 04:00 98 08/07/20 04:00 114/47 08/07/20 04:00 Mechanical Ventilator 08/07/20 04:00 98 24 114/47 (69) 08/07/20 03:00 128/50 08/07/20 03:00 97 24 128/50 (76) 08/07/20 02:00 136/54 08/07/20 02:00 95 24 136/54 (81) 08/07/20 01:36 94 24 100 08/07/20 01:00 144/61 08/07/20 01:00 94 24 144/61 (88) 08/07/20 00:00 94 24 141/57 (85) 08/07/20 00:00 141/57 08/07/20 00:00 94 08/07/20 00:00 Mechanical Ventilator 08/06/20 23:30 94 24 136/54 (81) 08/06/20 23:00 98.9 93 22 104/50 (68) 08/06/20 23:00 104/50 08/06/20 22:30 97 24 101/47 (65) 08/06/20 22:26 104 24 100 08/06/20 22:00 100 14 87/46 (60) 08/06/20 22:00 87/46 08/06/20 21:30 101 11 94/44 (61) 08/06/20 21:00 102 10 99/46 (63) 08/06/20 21:00 99/46 08/06/20 20:30 105 24 120/49 (72) 08/06/20 20:00 102.8 105 24 120/49 (72) 08/06/20 20:00 122/52 08/06/20 20:00 105 08/06/20 20:00 Mechanical Ventilator 08/06/20 19:30 101 24 100 08/06/20 19:00 117/47 08/06/20 19:00 106 23 115/48 (70) 08/06/20 18:30 105 23 114/46 (68) 94 08/06/20 18:00 104 21 113/49 (70) 95 08/06/20 18:00 113/49 08/06/20 17:30 103 24 124/46 (72) 96 08/06/20 17:00 119/50 08/06/20 17:00 103 24 124/49 (74) 97 08/06/20 16:30 103 24 125/50 (75) 96 08/06/20 16:01 99.9 102 24 112/53 (72) 97 08/06/20 16:00 100 08/06/20 16:00 102 24 112/53 (72) 97 08/06/20 16:00 Mechanical Ventilator 08/06/20 16:00 102 08/06/20 16:00 117/50 08/06/20 15:30 101 24 117/48 (71) 96 Intake and Output 08/06/20 08/07/20 19:00 07:00 Intake Total 2333.61584 ml 1817.974 ml Output Total 0 ml 0 ml Balance 2333.32411 ml 1817.974 ml Intake IV Total 2293.37163 ml 1817.974 ml Other 40 ml Output Urine Total 0 ml 0 ml Laboratory Tests 08/06/20 16:54: POC Whole Blood Glucose 359H 08/06/20 21:25: Activated Partial Thromboplast Time 40H 08/07/20 04:15: Activated Partial Thromboplast Time 37H 08/07/20 14:10: Sodium Level 138, Potassium Level 5.4H, Chloride Level 102, Carbon Dioxide Level 16L, Anion Gap 20H, Blood Urea Nitrogen 72H, Creatinine 9.4H, Estimat Glomerular Filtration Rate 4.4, Glucose Level 316H, Calcium Level 6.9L, Random Vancomycin Level 17.8 Height (Feet): 5 Height (Inches): 0.00 Weight (Pounds): 240 General Appearance: severe distress Neck: supple Cardiovascular: regular rhythm Respiratory/Chest: crackles/rales Abdomen: non tender, soft Extremities: non-tender Assessment/Plan Assessment/Plan: ac cardiopulmonary arrest meta encephalopathy covid 19 pna ac renal failure dm co morbid obesity poor prognosis con ventilator pressure suuports iv abx cardio, pulmo and nephro on consult consder neuro consult dw charge nurse Rehan Goyal MD Aug 07, 2020 15:14
[2020-08-07] MEDS: DOPamine 400mg/250ml 250 ML IV SCH (15:54)
[2020-08-07] MEDS: Phenylephrine 100 MG in D5W 500ml 490 ML IV SCH (16:58)
[2020-08-07] MEDS ORDERED: Vancomycin 750mg/NS 275ml IVPB ONE ×2 (17:00)
--- NOTE | 2020-08-07 17:53 | Cardiology Progress Note ---
Assessment/Plan Assessment/Plan 1. New onset Atrial fibrillation with RVR likely duet o sepsis and effects of vasopressors in combination. Heparin gtt is off due to blood oozing from the triple lumen. 2. Elevated troponin I level in this patient, most likely due to cardiac arrest and hypoperfusion of coronary vasculature, off heparin gtt due to bleed. 3. Syncope, could be secondary to pulmonary embolism or hypotension following hemodialysis or septic shock and hemodynamic compromise associated with sepsis and COVID-19 infection. 4. Hypoxic hypercarbic respiratory failure, currently intubated. 5. Multiorgan failure including renal failure, s/p acute HD, shock liver, and encephalopathy. Grim prognosis. 6. Generalized tonic-colonic due to cerebral hypoperfusion. 7. Bilateral bronchopneumonia of COVID-19 infection, mostly an ARDS picture, intubated. Subjective Subjective Atrial fibrillation with RVR at rate of 134. Objective Last 24 Hour Vital Signs Date Time Temp Pulse Resp B/P (MAP) Pulse Ox O2 Delivery O2 Flow Rate FiO2 08/07/20 16:58 88 66/17 08/07/20 15:54 52/15 08/07/20 15:11 80/34 08/07/20 14:00 106 24 95/46 (62) 96 08/07/20 14:00 105 24 89/34 (52) 08/07/20 13:58 105 24 100 08/07/20 13:30 106 24 95/46 (62) 96 08/07/20 13:00 105 24 88/34 (52) 94 08/07/20 12:30 98.5 106 24 93/38 (56) 96 08/07/20 12:00 105 24 93/36 (55) 08/07/20 12:00 93/36 08/07/20 12:00 105 08/07/20 12:00 Mechanical Ventilator 08/07/20 11:00 93/42 08/07/20 11:00 105 24 93/42 (59) 08/07/20 10:00 94/43 08/07/20 10:00 103 24 94/43 (60) 08/07/20 09:00 100/43 08/07/20 09:00 102 24 100/43 (62) 08/07/20 08:00 Mechanical Ventilator 08/07/20 08:00 100 12/26/20 08:00 76 08/07/20 08:00 103/43 08/07/20 08:00 101 24 103/43 (63) 08/07/20 07:00 101 24 106/46 (66) 08/07/20 07:00 106/46 08/07/20 06:55 101 24 100 08/07/20 06:30 100 24 08/07/20 06:00 100 24 117/48 (71) 08/07/20 06:00 117/48 08/07/20 05:00 100 24 118/49 (72) 08/07/20 05:00 118/49 08/07/20 04:00 98 08/07/20 04:00 114/47 08/07/20 04:00 Mechanical Ventilator 08/07/20 04:00 98 24 114/47 (69) 08/07/20 03:00 128/50 08/07/20 03:00 97 24 128/50 (76) 08/07/20 02:00 136/54 08/07/20 02:00 95 24 136/54 (81) 08/07/20 01:36 94 24 100 08/07/20 01:00 144/61 08/07/20 01:00 94 24 144/61 (88) 08/07/20 00:00 94 24 141/57 (85) 08/07/20 00:00 141/57 08/07/20 00:00 94 08/07/20 00:00 Mechanical Ventilator 08/06/20 23:30 94 24 136/54 (81) 08/06/20 23:00 98.9 93 22 104/50 (68) 08/06/20 23:00 104/50 08/06/20 22:30 97 24 101/47 (65) 08/06/20 22:26 104 24 100 08/06/20 22:00 100 14 87/46 (60) 08/06/20 22:00 87/46 08/06/20 21:30 101 11 94/44 (61) 08/06/20 21:00 102 10 99/46 (63) 08/06/20 21:00 99/46 08/06/20 20:30 105 24 120/49 (72) 08/06/20 20:00 102.8 105 24 120/49 (72) 12/25/20 20:00 122/52 08/06/20 20:00 105 08/06/20 20:00 Mechanical Ventilator 08/06/20 19:30 101 24 100 08/06/20 19:00 117/47 08/06/20 19:00 106 23 115/48 (70) 08/06/20 18:30 105 23 114/46 (68) 94 08/06/20 18:00 104 21 113/49 (70) 95 08/06/20 18:00 113/49 Intake and Output 08/06/20 08/07/20 19:00 07:00 Intake Total 2333.59501 ml 1817.974 ml Output Total 0 ml 0 ml Balance 2333.26142 ml 1817.974 ml Intake IV Total 2293.61859 ml 1817.974 ml Other 40 ml Output Urine Total 0 ml 0 ml Laboratory Tests Test 08/06/20 21:25 08/07/20 04:15 08/07/20 14:10 Activated Partial Thromboplast Time 40 SEC (23-33) H 37 SEC (23-33) H Sodium Level 138 MMOL/L (136-145) Potassium Level 5.4 MMOL/L (3.5-5.1) H Chloride Level 102 MMOL/L (98-107) Carbon Dioxide Level 16 MMOL/L (21-32) L Anion Gap 20 mmol/L (5-15) H Blood Urea Nitrogen 72 mg/dL (7-18) H Creatinine 9.4 MG/DL (0.55-1.30) H Estimat Glomerular Filtration Rate 4.4 mL/min (>60) Glucose Level 316 MG/DL (74-106) H Calcium Level 6.9 MG/DL (8.5-10.1) L Random Vancomycin Level 17.8 ug/mL Microbiology Date/Time Source Procedure Growth Status 08/04/20 19:03 Rectum - Final NO CARBAPENEM-RESISTANT ENTEROBACTERI... Complete 08/04/20 19:03 Rectum VRE Culture - Final NO VANCOMYCIN RESISTANT ENTEROCOCCUS ... Complete 08/04/20 19:03 Nasal Nares MRSA Culture - Final NO METHICILLIN RESISTANT STAPH AUREUS... Complete 08/04/20 18:46 Nasal Nares - Final Complete 08/04/20 18:46 Nasal Nares - Final Complete Objective HEENT: Atraumatic and normocephalic. Anicteric. Comatose. NECK: JVP cannot be assessed due to increased positive inspiratory pressure. CARDIOVASCULAR: Normal S1, S2. Irregularly irregular rhythm. Tachycardic. No murmurs, gallops, or rubs. LUNGS: Bibasilar bilateral crackles in both lungs. ABDOMEN: Soft, nontender, nondistended. No hepatosplenomegaly. Positive bowel sounds extremities. EXTREMITIES: No evidence of edema, clubbing, or cyanosis. Torres Gates MD Aug 07, 2020 17:53
[2020-08-07] MEDS: Dyna-Hex 2% Top Sol 2oz TOPIC SCH (20:19)
[2020-08-07] MEDS ORDERED: Sodium Bicarbonate 50 ML in D5W 1000ml 1,000 ML IV SCH (21:00)
--- NOTE | 2020-08-07 22:00 | Consultation ---
DATE OF CONSULTATION: 08/07/2020 NEUROLOGY CONSULTATION CONSULTING PHYSICIAN: Navin Alex M.D. REFERRING PHYSICIAN: Kevin Antunez M.D. REASON FOR CONSULTATION: Altered mental status. HISTORY OF PRESENT ILLNESS: The patient is a 50-year-old female on chronic hemodialysis due to end-stage renal disease. No past history is known. She was brought in by paramedics to the emergency room after suffering an episode of syncope. Apparently, the family called the EMS because of the syncopal episode and EMS responded and the patient was brought to the emergency room. While en route, she was found to have seizure activity as well as in the emergency room. In the emergency room, the patient suffered a cardiopulmonary arrest while waiting for the ER that she was intubated and admitted to the intensive care unit for further evaluation and treatment. In the ambulance, the patient was treated with Versed 5 mg for the seizure activity. At this time, the patient is completely unresponsive in the intensive care unit. She was also found to have diabetic ketoacidosis and was positive for COVID-19 infection. In the intensive care unit, the patient has not improved and she is completely unresponsive. Neurological consultation has been obtained for further evaluation and treatment. There is no further history available. PAST MEDICAL HISTORY: Significant for end-stage renal disease, hypertension, hypothyroidism, and hyperlipidemia. ALLERGIES: No known drug allergies. PAST SURGICAL HISTORY: The patient has a past history of dialysis AV shunt placement. REVIEW OF SYSTEMS: Unable to be obtained. MEDICATIONS: Include aspirin 81 mg daily, atorvastatin 40 mg at bedtime, carvedilol 6.25 mg twice daily, Colace 100 mg daily, levothyroxine 75 mcg daily, senna 8.6 mg daily, sevelamer 800 mg 3 times a day. PHYSICAL EXAMINATION: VITAL SIGNS: Current vital signs include blood pressure 166/70, pulse of 88, respiratory rate of 24 with vent settings of 24, and oxygen saturation is 96%. GENERAL: General physical examination reveals a middle-aged woman, lying in bed. She is intubated and on mechanical ventilation. physical examination is otherwise unremarkable. NEUROLOGICAL: Mental status, the patient was comatose. Pupils are non-reactive. Oculocephalic responses are absent. The patient does not have a gag reflex. She has no spontaneous movements noted. She does not respond to painful stimulation bilaterally in the upper and lower extremities. LABORATORY AND DIAGNOSTIC DATA: Laboratory evaluation, her most recent laboratory data from 08/05/2020 revealed WBC count of 24.6, hemoglobin is 11.9, hematocrit 32.8, platelets are 133, which are low. Her basic metabolic profile from this morning reveals sodium of 138, potassium of 5.4, chloride 102, carbon dioxide 16, BUN is 72, creatinine is 9.4, glucose is 316. Calcium is also low at 6.9. Her chest x-ray obtained on 08/04/2020 reveals extensive bilateral infiltrates, which may reflect pulmonary edema or pneumonia. ASSESSMENT: 1. Acute anoxic encephalopathy. 2. Status post cardiac arrest. 3. Episode of generalized convulsive seizures in the emergency room and in the paramedics. 4. Multiorgan failure. 5. Episode of syncope. 6. Bilateral bronchopneumonia. 7. COVID-19 infection. 8. Marked hypoglycemia. 9. Hyponatremia. 10. Hyperkalemia. DISCUSSION AND PLAN: The patient presented with an episode of syncope followed by multiple seizures followed by cardiac arrest and is currently comatose. She was found to have bilateral bronchopneumonia and COVID-19 infection. At this time, the patient is chronically ill and she has suffered acute anoxic encephalopathy and has significant anoxic brain injury. Her prognosis is grave. She is on multiple antibiotics as well as Decadron for her pneumonia as well as COVID-19 infection. The patient has not had any brain imaging and would be difficult to obtain given her current status since she is hemodynamically unstable. However, if she does become somewhat stable from a hemodynamic perspective, I will try to obtain a CT scan of the brain. I will also obtain an EEG to assess her brain activity. Further recommendations will depend upon the results of the above studies. Thank you for allowing me to participate in the care of this patient. I will provide further recommendations as necessary. Navin Alex M.D. DR: TAMIKA JOB#: [id number] CC:
[2020-08-08] VITALS (22 sets, daily range): BP systolic 44–102; BP diastolic 11–70
[2020-08-08] MEDS: Phenylephrine 100 MG in D5W 500ml 490 ML IV SCH (00:20)
[2020-08-08] MEDS: SODIUM CHLORIDE IV SCH (00:21)
[2020-08-08] MEDS: NOREPINEPHRINE BITARTRATE IV SCH (00:21)
[2020-08-08] MEDS ORDERED: Sodium Bicarbonate 50ml Carp IV SCH ×2 (01:00→01:05)
[2020-08-08] MEDS: NovoLOG Insulin Flexpen SUBQ SCH ×2 (01:00→05:00)
[2020-08-08] MEDS: Piperacillin/Tazobactam 2.25 GM in NS 55 ML IV SCH (03:28)
[2020-08-08] MEDS: DOPamine 400mg/250ml 250 ML IV SCH (03:32)
--- NOTE | 2020-08-08 06:56 | Emergency Room Report ---
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 COVID-19 Screening: Positive COVID-19 Patient History Limited by: medical condition - intubated Past Medical History: see triage record Now: No Reviewed Nursing Documentation: PMH: Agreed; PSxH: Agreed Nursing Documentation-PMH Hx Cardiac Problems: No Hx Cancer: No Hx Gastrointestinal Problems: No Hx Seizures: Yes Review of Systems All Other Systems: limited - Intubated Physical Exam Vital Signs Date Time Temp Pulse Resp B/P (MAP) Pulse Ox O2 Delivery O2 Flow Rate FiO2 08/04/20 14:42 142 22 119/72 (88) 86 Ambu-Bag 15.0 08/04/20 15:02 100 08/04/20 15:30 98.5 Sp02 EP Interpretation: reviewed, abnormal General Appearance: severe distress Eyes: bilateral eye other - Fixed Respiratory: other - Ventilated Cardiovascular #1: other - No pulse Neuologic: Unresponsive Procedures Critical Care Time Critical Care Time Given the critical condition in which the patient arrived, the patient was immediately assessed by myself and the nurse, and cardiac monitoring initiated due to the potential for rapid decompensation of the patient's clinical condition. During the course of the patient's stay, I spent a considerable amount of time at the bedside performing serial re-evaluations of the patient's hemodynamic and clinical status because of the recognized potential threat to life or limb in this condition. I then had a chance to review not only all of the available current laboratory and radiographic studies obtained today, but I also reviewed old records available to me at the time. 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 Sequential vital signs were obtained. Critical Care time of 15 minutes was performed exclusive of billable procedures. CPR/Code Blue CPR/Code Blue Narrative Patient was given multiple rounds of epinephrine, calcium, bicarb Medical Decision Making Diagnostic Impression: Primary Impression: Cardiac arrest Additional Impressions: COVID-19 Septic shock DKA (diabetic ketoacidoses) Metabolic acidosis Pneumonia ER Course 50-year-old female presents in cardiac arrest, differential includes acidosis, respiratory failure, all secondary to sepsis/Covid pneumonia Patient given multiple rounds of epinephrine, ACLS per protocol. Patient with fixed pupils, unresponsive Unable to obtain ROSC Please refer to nursing notes for time of Last Vital Signs Date Time Temp Pulse Resp B/P (MAP) Pulse Ox O2 Delivery O2 Flow Rate FiO2 08/08/20 05:45 72 24 87/70 (76) 45 08/08/20 04:00 100 08/08/20 04:00 Mechanical Ventilator 08/08/20 04:00 99.8 08/05/20 08:15 15.0 Disposition: Condition: Referrals: [facility],REFERRING (PCP) Additional Instructions: Please note that this report is being documented using DRAGON technology. This can lead to erroneous entry secondary to incorrect interpretation by the dictating instrument. Juan Horton MD Aug 08, 2020 06:56
[2020-08-08 07:12] LABS: CREATININE 9.9 MG/DL (0.55-1.30)
[2020-08-08 07:14] LABS: POTASSIUM 6.6 MMOL/L (3.5-5.1)
[2020-08-08 07:15] LABS: HEMATOCRIT 25.4 % (37.0-47.0); MEAN CORPUSCULAR VOLUME 114 FL (80-99); PLATELET COUNT 107 K/UL (150-450); RED BLOOD COUNT 2.24 M/UL (4.20-5.40); RED CELL DISTRIBUTION WIDTH 15.9 % (11.6-14.8); WHITE BLOOD COUNT 21.4 K/UL (4.8-10.8)
[2020-08-08] MEDS ORDERED: NS 275ml ONE (13:29)
[2020-08-08] MEDS ORDERED: Tubing IV Secondary IV ONE (13:29)
--- NOTE | 2020-08-08 15:00 | Discharge Summary ---
DATE OF ADMISSION: 08/04/2020 DATE OF DISCHARGE: 08/08/2020 SUMMARY This was a 50-year-old female who came to the emergency room for short of breath, hypoxia for couple of weeks. Patient was found as hypoxic and has cardiopulmonary arrest. In the ER, patient was intubated and successively Code Blue was done. Patient was transferred in ICU. Patient was never responsive during this time. She was also hypotensive. She received Levophed and maximum IV fluid and sliding scale. Patient was nonverbal. Patient was also noted at this time has acute renal failure. Diabetes poorly controlled. Patient was this morning due to multiorgan failure. Patient also had COVID. DISCHARGE DIAGNOSES: 1. , probably secondary to acute cardiopulmonary arrest. 2. COVID pneumonia. 3. Diabetes, DKA. 4. Acute renal failure. Eugene Goyal M.D. DR: NADIA JOB#: [id number] CC:
--- NOTE | 2020-08-09 10:30 | Progress Note ---
DATE: 08/05/2020 HISTORY OF PRESENT ILLNESS: This is a 50-year-old female who came to the emergency room for COVID-19 positive and was in cardiopulmonary arrest in the emergency room. The patient was resuscitated 2 times. The patient has been sick at home for a while, cannot get medical history. PAST MEDICAL HISTORY: From records, it looks like she has hyperlipidemia, hypothyroidism, diabetes, and aspirin. The patient has poor compliance, also was found to have renal insufficiency. MEDICATIONS: Aspirin, Lipitor, carvedilol, Colace, levothyroxine, sevelamer. ALLERGIES: NKA. FAMILY HISTORY: The patient probably lives with the family. PHYSICAL EXAMINATION: GENERAL: The patient is in ICU on a ventilator, nonverbal, poor prognosis, on multiple drips. VITAL SIGNS: Her blood pressure is 118/54, pulse 82, respirations 20, temperature 98.3. HEENT: Eyes are closed. NECK: Supple. CHEST: Bilateral decreased breath sounds. CARDIOVASCULAR: Regular rhythm. ABDOMEN: Soft. Positive bowel sounds, nontender. EXTREMITIES: No edema. GENITOURINARY: Deferred. LABORATORY DATA: White counts are 25,000, hemoglobin 11, hematocrit 33, platelets are 177. Chemistry panel, sodium 131, potassium 3.8, BUN 95, creatinine 13.4, glucose 647. Troponin 2.224. ASSESSMENT AND PLAN: 1. Acute cardiopulmonary arrest. 2. Acute renal failure. 3. DKA. 4. Diabetes. 5. Comorbid obesity. We will admit in the ICU. The patient is on multiple drips. The patient had Levophed drip. Continue heparin drip and p.o. vasopressor, sliding scale, Accu-Chek, and insulin drip. Consider cardiology, pulmonary and ID consult. Continue in isolation. Eugene Goyal M.D. DR: ANTOINE JOB#: [id number] CC:
== END 2020-08-08 13:30 | disposition expired | DRG 720 ==
LOC: EDSEX 15:02 → EDBD 15:02 → EMR 15:15 → ICU 17:15 → EDBEDREQ 08-05 05:08
PROC: 06HN33Z Insertion of Infusion Device into Left Femoral Vein, Percutaneous Approach (ICD-10-PCS; 2020-08-04)
PROC: 5A1945Z Respiratory Ventilation, 24-96 Consecutive Hours (ICD-10-PCS; 2020-08-04)
PROC: 5A12012 Performance of Cardiac Output, Single, Manual (ICD-10-PCS; 2020-08-04)
PROC: 0BH17EZ Insertion of Endotracheal Airway into Trachea, Via Natural or Artificial Opening (ICD-10-PCS; 2020-08-04)
PROC: 5A1D70Z Performance of Urinary Filtration, Intermittent, Less than 6 Hours Per Day (ICD-10-PCS; principal; 2020-08-05)
DX: A41.89 Other specified sepsis (principal); U07.1 COVID-19; I46.9 Cardiac arrest, cause unspecified; E11.10 Type 2 diabetes mellitus with ketoacidosis without coma; J12.89 Other viral pneumonia; N17.9 Acute kidney failure, unspecified; J80 Acute respiratory distress syndrome; R65.21 Severe sepsis with septic shock; G93.41 Metabolic encephalopathy; E11.22 Type 2 diabetes mellitus with diabetic chronic kidney disease; E11.65 Type 2 diabetes mellitus with hyperglycemia; N18.6 End stage renal disease; Z99.2 Dependence on renal dialysis; R56.9 Unspecified convulsions; I21.4 Non-ST elevation (NSTEMI) myocardial infarction; E87.1 Hypo-osmolality and hyponatremia; I48.91 Unspecified atrial fibrillation; E66.01 Morbid (severe) obesity due to excess calories; Z68.42 Body mass index [BMI] 45.0-49.9, adult; D63.1 Anemia in chronic kidney disease; N25.0 Renal osteodystrophy; E87.5 Hyperkalemia
CPT/HCPCS: 31500; 36415; 71045; 80048; 80053; 80202; 82550; 82728; 82803; 82962; 83036; 83605; 83615; 83690; 83735; 83880; 84100; 84484; 85007; 85025; 85379; 85610; 85730; 86140; 86706; 86710; 86850; 86900; 86901; 87040; 87081; 87181; 92950; 93005; 94002; 94003; 99291; 99292; J0282; J1815; J2370; J7030; U0002